=== PATIENT | male | born 1975 | race Caucasian/White ===

== ENCOUNTER 2016-05-08 19:09 | Emergency (ER) | payer MEDICAID ==
[2016-05-08] MEDS ORDERED: Sodium Chloride 0.9% 10 ML Syringe FLUSH PRN (19:12)
[2016-05-08] MEDS ORDERED: LORazepam 2 MG/ML MDV IM ONE (19:13)
[2016-05-08] MEDS ORDERED: Haloperidol Lactate 5 MG/ML SDV IM ONE ×2 (19:14)
[2016-05-08] MEDS ORDERED: Sodium Chloride 0.9% 1,000 ML IV SCH (19:15)
[2016-05-08] MEDS ORDERED: Sodium Chloride 0.9% 1,000 ML IV ONE (20:17)
[2016-05-08] MEDS ORDERED: Potassium Chloride 20 MEQ Tab.ER PO ONE (20:17)
--- NOTE | 2016-05-08 20:32 | EDM.PDOC ---
ED HPI Behavioral Health - General Chief Complaint: Drug or Alcohol Abuse Stated Complaint: EFRAIN THACKER Time Seen by Provider: 05/08/16 19:11 Source of Information: Reports: Patient, Police Exam Limitations: Reports: Intoxication - History of Present Illness INITIAL COMMENTS - FREE TEXT/NARRATIVE: The patient was brought in by the police department because they found him wandering the streets naked and high on something. When he arrived he was anxious and agitated and he would not answer my questions. He was saying sorry to Julien and saying he feet are burning. He was found with no shoes or socks and it is about 19 degrees outside. He could not answer any of my questions and the police had no other information. Onset of Symptoms: Reports: gradual Duration of Symptoms: Reports: Day(s): Severity: severe Context, Behavioral Health: Reports: other Associated Symptoms: Reports: anxiety, agitation - Related Data Allergies Allergy/AdvReac Type Severity Reaction Status Date / Time No Known Allergies Allergy Verified 05/08/16 19:18 Home Medications: Home Meds QUEtiapine Fumarate [Seroquel Xr] 300 mg PO BEDTIME #30 tab.sr.24h 05/09/16 [Rx] Past Medical History - Past Surgical History Musculoskeletal Surgical History: Reports: ORIF Social & Family History - Tobacco Use Smoking Status *Q: Never Smoker - Recreational Drug Use Recreational Drug Use: Yes Drug Use in Last 12 Months: Yes Recreational Drug Type: Reports: Methamphetamine Recreational Drug Use Frequency: Binges ED ROS GENERAL - Review of Systems Review Of Systems: Unable To Obtain ED EXAM, BEHAVIORAL HEALTH - Physical Exam Exam: See Below Exam Limited By: Altered mental status (Agitated and confused) General Appearance: alert, anxious, moderate distress Nose: normal inspection Head: atraumatic, normocephalic Neck: normal inspection Respiratory/Chest: no respiratory distress, lungs clear, normal breath sounds Cardiovascular: regular rate, rhythm, no edema, no murmur GI/Abdominal: soft, non tender, no organomegaly Back Exam: normal inspection Extremities: normal inspection Neurological: alert, no motor/sensory deficits, oriented x 3 Psychiatric: alert, other (Confused and he will not answer my questions) Skin Exam: Warm, Dry EKG INTERPRETATION EKG Date: 05/08/16 Time: 19:24 Rhythm: other (Sinus tachycardia) Rate (beats/min): 138 [place]: normal P-wave: present QRS: normal ST-T: normal QT: normal COURSE, BEHAVIORAL HEALTH COMP - Course Vital Signs: Last Vital Signs Temp 98.4 F 05/08/16 19:16 Pulse 120 H 05/08/16 19:16 Resp 20 05/08/16 19:16 BP 109/63 05/08/16 19:16 Pulse Ox 95 05/08/16 19:16 Orders, Labs, Meds: Active Orders 24 hr Category Date Time Status Cardiac Monitoring [RC] . DIRECTED Care 05/08/16 19:12 Active EKG Documentation Completion [RC] STAT Care 05/08/16 19:13 Active Peripheral IV Care [RC] . DIRECTED Care 05/08/16 19:13 Active NS + KCl 20mEq/L [Normal Saline with 20 mEq KCl] 1,000 Med 05/08/16 23:15 Active ml IV ASDIRECTED Sodium Chloride 0.9% [Normal Saline] 1,000 ml Med 05/08/16 19:15 Active IV .BOLUS Sodium Chloride 0.9% [Saline Flush] Med 05/08/16 19:12 Active 10 ml FLUSH ASDIRECTED PRN Peripheral IV Insertion Adult [OM.PC] Stat Oth 05/08/16 19:12 Ordered Medication Orders Sodium Chloride (Normal Saline) 1,000 mls @ 1,000 mls/hr IV .BOLUS LYN Last Admin: 05/08/16 19:41 Dose: 1,000 mls/hr Potassium Chloride/Sodium Chloride (Normal Saline With 20 Meq Kcl) 1,000 mls @ 150 mls/hr IV ASDIRECTED LYN Sodium Chloride (Saline Flush) 10 ml FLUSH ASDIRECTED PRN PRN Reason: Keep Vein Open Last Admin: 05/08/16 19:41 Dose: 10 ml Laboratory Tests 05/08/16 05/08/16 05/08/16 Range/Units 19:25 19:25 19:25 WBC 16.04 H (4.23-9.07) K/mm3 RBC 5.39 (4.63-6.08) M/mm3 Hgb 16.7 (13.7-17.5) gm/L Hct 46.8 (40.1-51.0) % MCV 86.8 (79.0-92.2) fl MCH 31.0 (25.7-32.2) pg MCHC 35.7 H (32.2-35.5) g/dl RDW Std Deviation 38.5 (35.1-43.9) fL Plt Count 266 (163-337) K/mm3 MPV 9.5 (9.4-12.3) fl Neut % (Auto) 68.9 H (34.0-67.9) % Lymph % (Auto) 20.9 L (21.8-53.1) % [place] % (Auto) 7.1 (5.3-12.2) % Eos % (Auto) 1.2 (0.8-7.0) Baso % (Auto) 0.7 (0.1-1.2) % Neut # 11.05 H (1.78-5.38) K/mm3 Lymph # 3.35 (1.32-3.57) K/mm3 [place] # 1.14 H (0.30-0.82) K/mm3 Eos # 0.19 (0.04-0.54) K/mm3 Baso # 0.11 H (0.01-0.08) K/mm3 Manual Slide Review Normal smear Sodium 137 (136-145) mEq/L Potassium 2.5 L (3.5-5.1) mEq/L Chloride 94 L (98-107) mEq/L Carbon Dioxide 12 L (21-32) mEq/L Anion Gap 33.5 H (5-15) BUN 25 H (7-18) mg/dL Creatinine 2.4 H (0.7-1.3) mg/dL Est Cr Clr Drug Dosing 39.98 mL/min Estimated GFR (MDRD) 30 (>60) mL/min BUN/Creatinine Ratio 10.4 L (14-18) Glucose 264 H (74-106) mg/dL Calcium 9.2 (8.5-10.1) mg/dL Total Bilirubin 1.8 H (0.2-1.0) mg/dL AST 67 H (15-37) U/L ALT 82 H (16-63) U/L Alkaline Phosphatase 70 (46-116) U/L Total Protein 8.7 H (6.4-8.2) g/dl Albumin 4.3 (3.4-5.0) g/dl Globulin 4.4 gm/dL Albumin/Globulin Ratio 1.0 (1-2) TSH 3rd Generation 3.898 H (0.358-3.74) uIU/mL Salicylates < 0.2 L (2.8-20) mg/dL Urine Opiates Screen (NEGATIVE) Ur Buprenorphine Scrn (NEGATIVE) Ur Oxycodone Screen (NEGATIVE) Urine Methadone Screen (NEGATIVE) Ur Propoxyphene Screen (NEGATIVE) Acetaminophen 0 L (10-30) ug/mL Ur Barbiturates Screen (NEGATIVE) Ur Tricyclics Screen (NEGATIVE) Ur Phencyclidine Scrn (NEGATIVE) Ur Amphetamine Screen (NEGATIVE) U Methamphetamines Scrn (NEGATIVE) U Benzodiazepines Scrn (NEGATIVE) U Cocaine Metab Screen (NEGATIVE) U Marijuana (THC) Screen (NEGATIVE) Ethyl Alcohol 0.00 (0.00) gm% 05/08/16 05/09/16 Range/Units 19:35 06:30 WBC (4.23-9.07) K/mm3 RBC (4.63-6.08) M/mm3 Hgb (13.7-17.5) gm/L Hct (40.1-51.0) % MCV (79.0-92.2) fl MCH (25.7-32.2) pg MCHC (32.2-35.5) g/dl RDW Std Deviation (35.1-43.9) fL Plt Count (163-337) K/mm3 MPV (9.4-12.3) fl Neut % (Auto) (34.0-67.9) % Lymph % (Auto) (21.8-53.1) % [place] % (Auto) (5.3-12.2) % Eos % (Auto) (0.8-7.0) Baso % (Auto) (0.1-1.2) % Neut # (1.78-5.38) K/mm3 Lymph # (1.32-3.57) K/mm3 [place] # (0.30-0.82) K/mm3 Eos # (0.04-0.54) K/mm3 Baso # (0.01-0.08) K/mm3 Manual Slide Review Sodium 137 (136-145) mEq/L Potassium 3.6 (3.5-5.1) mEq/L Chloride 100 (98-107) mEq/L Carbon Dioxide 24 (21-32) mEq/L Anion Gap 16.6 H (5-15) BUN 20 H (7-18) mg/dL Creatinine 1.1 (0.7-1.3) mg/dL Est Cr Clr Drug Dosing 87.23 mL/min Estimated GFR (MDRD) > 60 (>60) mL/min BUN/Creatinine Ratio 18.2 H (14-18) Glucose 86 (74-106) mg/dL Calcium 8.1 L (8.5-10.1) mg/dL Total Bilirubin 1.5 H (0.2-1.0) mg/dL AST 65 H (15-37) U/L ALT 67 H (16-63) U/L Alkaline Phosphatase 59 (46-116) U/L Total Protein 7.2 (6.4-8.2) g/dl Albumin 3.3 L (3.4-5.0) g/dl Globulin 3.9 gm/dL Albumin/Globulin Ratio 0.9 L (1-2) TSH 3rd Generation (0.358-3.74) uIU/mL Salicylates (2.8-20) mg/dL Urine Opiates Screen Negative (NEGATIVE) Ur Buprenorphine Scrn Negative (NEGATIVE) Ur Oxycodone Screen Negative (NEGATIVE) Urine Methadone Screen Negative (NEGATIVE) Ur Propoxyphene Screen Negative (NEGATIVE) Acetaminophen (10-30) ug/mL Ur Barbiturates Screen Negative (NEGATIVE) Ur Tricyclics Screen Negative (NEGATIVE) Ur Phencyclidine Scrn Negative (NEGATIVE) Ur Amphetamine Screen Presumptive positive H (NEGATIVE) U Methamphetamines Scrn Presumptive positive H (NEGATIVE) U Benzodiazepines Scrn Negative (NEGATIVE) U Cocaine Metab Screen Negative (NEGATIVE) U Marijuana (THC) Screen Negative (NEGATIVE) Ethyl Alcohol (0.00) gm% Medications Generic Name Dose Route Start Last Admin Trade Name Freq PRN Reason Stop Dose Admin Sodium Chloride 1,000 mls @ 1,000 mls/hr 05/08/16 19:15 05/08/16 19:41 Normal Saline IV 1,000 mls/hr .BOLUS LYN Administration Potassium Chloride/Sodium Chloride 1,000 mls @ 150 mls/hr 05/08/16 23:15 Normal Saline With 20 Meq Kcl IV ASDIRECTED LYN Sodium Chloride 10 ml 05/08/16 19:12 05/08/16 19:41 Saline Flush FLUSH 10 ml ASDIRECTED PRN Administration Keep Vein Open Discontinued Medications Generic Name Dose Route Start Last Admin Trade Name Justin PRN Reason Stop Dose Admin Haloperidol Lactate 5 mg 05/08/16 19:14 05/08/16 19:09 Haldol IM 05/08/16 19:15 5 mg ONETIME ONE Administration Haloperidol Lactate 5 mg 05/08/16 19:14 05/08/16 19:10 Haldol IM 05/08/16 19:15 5 mg ONETIME ONE Administration Sodium Chloride 1,000 mls @ 1,000 mls/hr 05/08/16 20:17 05/08/16 20:54 Normal Saline IV 05/08/16 21:16 1,000 mls/hr ONETIME ONE Administration Lorazepam 2 mg 05/08/16 19:13 05/08/16 19:09 Ativan IM 05/08/16 19:14 2 mg ONETIME ONE Administration Potassium Chloride 40 meq 05/08/16 20:17 05/08/16 20:26 Klor-Con M20 PO 05/08/16 20:18 40 meq ONETIME ONE Administration Re-Assessment/Re-Exam: I ordered ativan 2mg IM and haldol 5mg IM. That did not help much so I ordered haldol 5mg IM. He was more cooperative then and my nurse could put an IV in and give him NS 1L bolus. His EKG shows a sinus tachycardia without acute changes. His WBC is elevated at 16.04. His K was low at 2.5. He is drinking now so I ordered 40meq of KCL orally. His glucose was elevated at 254. His total bili was elevated at 1.8. His AST was elevated at 67. His ALT was elevated at 82. His TSH was elevated at 3.898. His salicylates and acetaminophen were both negative. He was positive for meth and amphetamines. He admitted to using meth over the past few days. His ETOH is negative. I gave him another liter of fluid. He is dehydrated. I went in to talk to him again and he was doing much better. We had a good conversation to start with. He knows he needs to get off the meth and he will never do it again. He then says that some one is testing him and they have put nanobots under his skin. One of them makes a hissing sound in his ears. They were also zapping his feet and that is why they hurt. He knows who he is, where he is and when it is but he is having delusions and hallucinations. I will need to get him on some seroquel and I will recheck his CMP now. He has been getting IV fluids and he has been drinking water through the night. His CMP looks much better. His K is normal and his creatinine is normal at 1.1. His liver enzymes are still elevated. I will discharge him home on some seroquel and follow up with Dr Diaz. Departure - Departure Time of Disposition: 07:05 Disposition: Home, Self-Care 01 Condition: good Clinical Impression: Drug abuse, Methamphetamine abuse Prescriptions: QUEtiapine Fumarate [Seroquel Xr] 300 mg PO BEDTIME #30 tab.sr.24h Referrals: Dewey Diaz MD [Physician] - 1 Week Additional Instructions: Take the seroquel at bedtime. Follow up with Dr Diaz. Please return if you are worse. - My Orders Last 24 Hours: My Active Orders 05/08/16 19:12 Cardiac Monitoring [RC] . DIRECTED Sodium Chloride 0.9% [Saline Flush] 10 ml FLUSH ASDIRECTED PRN Peripheral IV Insertion Adult [OM.PC] Stat 05/08/16 19:13 EKG Documentation Completion [RC] STAT Peripheral IV Care [RC] . DIRECTED 05/08/16 19:15 Sodium Chloride 0.9% [Normal Saline] 1,000 ml IV .BOLUS 05/08/16 23:15 NS + KCl 20mEq/L [Normal Saline with 20 mEq KCl] 1,000 ml IV ASDIRECTED - Assessment/Plan Last 24 Hours: My Active Orders 05/08/16 19:12 Cardiac Monitoring [RC] . DIRECTED Sodium Chloride 0.9% [Saline Flush] 10 ml FLUSH ASDIRECTED PRN Peripheral IV Insertion Adult [OM.PC] Stat 05/08/16 19:13 EKG Documentation Completion [RC] STAT Peripheral IV Care [RC] . DIRECTED 05/08/16 19:15 Sodium Chloride 0.9% [Normal Saline] 1,000 ml IV .BOLUS 05/08/16 23:15 NS + KCl 20mEq/L [Normal Saline with 20 mEq KCl] 1,000 ml IV ASDIRECTED
[2016-05-08] MEDS ORDERED: NS + KCl 20mEq/L 1,000 ML IV SCH (23:15)
[2016-05-09 06:33] VITALS: BP 109/63
== END 2016-05-09 07:45 | disposition home or self-care (01) ==
LOC: JD.ED 19:09
DX: F15.10 Other stimulant abuse, uncomplicated (principal); Z98.890 Other specified postprocedural states
CPT/HCPCS: 36415; 80053; 84443; 85025; 93005; 96360; 96361; 96372; 99284; A9270; G0478; G0479; G0480; J1630; J2060; J7040; J7050; P9612; 80306; 99285

== ENCOUNTER 2016-05-20 06:44 | Inpatient (IN) | payer MEDICAID ==
[2016-05-20] MEDS ORDERED: Lactated Ringers 1,000 ML IV ONE (07:01)
[2016-05-20] MEDS: Sodium Chloride 0.9% 10 ML Syringe FLUSH PRN (07:34)
--- NOTE | 2016-05-20 07:45 | EDM.PDOC ---
ED HPI GENERAL MEDICAL PROBLEM - General Chief Complaint: Exposure to Heat or Cold Stated Complaint: FROSTBITE Time Seen by Provider: 05/20/16 06:57 Source of Information: Reports: Patient History Limitations: Reports: Intoxication - History of Present Illness INITIAL COMMENTS - FREE TEXT/NARRATIVE: The patient [place] by [place] taxi cab [place] right here. The patient was very cold and agitated. He was a little confused. He was worried about the police. He was here about 2 weeks ago with meth intoxication. That time the police found him wondering naked in the streets with just his wallet. He used meth at that time. This time he denied meth use to me but later he did admit to my nurse that he did use meth. He denies any pain anywhere. Onset: gradual Duration: Day(s): Severity: moderate Improves with: Reports: None Worsens with: Reports: None Associated Symptoms: Denies: chest pain, cough, fever/chills, headaches, loss of appetite, nausea/vomiting, shortness of breath - Related Data Allergies Allergy/AdvReac Type Severity Reaction Status Date / Time No Known Allergies Allergy Verified 05/08/16 19:18 Home Meds: Home Meds QUEtiapine Fumarate [Seroquel Xr] 300 mg PO BEDTIME #30 tab.sr.24h 05/09/16 [Rx] Past Medical History - Past Surgical History Musculoskeletal Surgical History: Reports: ORIF Social & Family History - Tobacco Use Smoking Status *Q: Never Smoker - Recreational Drug Use Recreational Drug Use: Yes Drug Use in Last 12 Months: Yes Recreational Drug Type: Reports: Methamphetamine Recreational Drug Use Frequency: Binges ED ROS GENERAL - Review of Systems Review Of Systems: See Below Constitutional: Reports: no symptoms HEENT: Reports: No symptoms Respiratory: Reports: no symptoms Cardiovascular: Reports: No symptoms Endocrine: Reports: no symptoms GI/Abdominal: Reports: No symptoms : Reports: no symptoms Musculoskeletal: Reports: no symptoms Skin: Reports: no symptoms Neurological: Reports: no symptoms Psychiatric: Reports: No symptoms Hematologic/Lymphatic: Reports: no symptoms ED EXAM, GENERAL - Physical Exam Exam: See Below Exam Limited By: No limitations General Appearance: alert, no apparent distress Ears: normal external exam Nose: normal inspection Head: atraumatic, normocephalic Neck: normal inspection Respiratory/Chest: no respiratory distress, lungs clear, normal breath sounds Cardiovascular: regular rate, rhythm, no edema, no murmur GI/Abdominal: soft, non tender, no organomegaly Back Exam: normal inspection Extremities: normal inspection Neurological: alert, oriented, no motor/sensory deficits Course - Vital Signs Last Recorded V/S: Last Vital Signs Temp 96.8 F 05/20/16 07:04 Pulse 106 H 05/20/16 07:04 Resp 20 05/20/16 07:04 BP 137/87 05/20/16 07:04 Pulse Ox 96 05/20/16 07:04 - Orders/Labs/Meds Orders: Active Orders 24 hr Category Date Time Status Cardiac Monitoring [RC] . DIRECTED Care 05/20/16 06:59 Active Peripheral IV Care [RC] . DIRECTED Care 05/20/16 07:00 Active DRUG SCREEN, URINE [URCHEM] Stat Lab 05/20/16 06:58 Uncollected Sodium Chloride 0.9% [Saline Flush] Med 05/20/16 06:58 Active 10 ml FLUSH ASDIRECTED PRN Peripheral IV Insertion Adult [OM.PC] Stat Oth 05/20/16 06:58 Ordered Medication Orders Sodium Chloride (Saline Flush) 10 ml FLUSH ASDIRECTED PRN PRN Reason: Keep Vein Open Last Admin: 05/20/16 07:34 Dose: 10 ml Labs: Laboratory Tests 05/20/16 05/20/16 Range/Units 07:20 07:20 WBC 11.54 H (4.23-9.07) K/mm3 RBC 4.94 (4.63-6.08) M/mm3 Hgb 15.4 (13.7-17.5) gm/L Hct 44.5 (40.1-51.0) % MCV 90.1 (79.0-92.2) fl MCH 31.2 (25.7-32.2) pg MCHC 34.6 (32.2-35.5) g/dl RDW Std Deviation 41.2 (35.1-43.9) fL Plt Count 229 (163-337) K/mm3 MPV 8.6 L (9.4-12.3) fl Neut % (Auto) 81.6 H (34.0-67.9) % Lymph % (Auto) 14.0 L (21.8-53.1) % [place] % (Auto) 3.0 L (5.3-12.2) % Eos % (Auto) 0.4 L (0.8-7.0) Baso % (Auto) 0.6 (0.1-1.2) % Neut # 9.40 H (1.78-5.38) K/mm3 Lymph # 1.62 (1.32-3.57) K/mm3 [place] # 0.35 (0.30-0.82) K/mm3 Eos # 0.05 (0.04-0.54) K/mm3 Baso # 0.07 (0.01-0.08) K/mm3 Sodium 148 H (136-145) mEq/L Potassium 3.6 (3.5-5.1) mEq/L Chloride 108 H (98-107) mEq/L Carbon Dioxide 22 (21-32) mEq/L Anion Gap 21.6 H (5-15) BUN 19 H (7-18) mg/dL Creatinine 1.0 (0.7-1.3) mg/dL Est Cr Clr Drug Dosing TNP Estimated GFR (MDRD) > 60 (>60) mL/min BUN/Creatinine Ratio 19.0 H (14-18) Glucose 127 H (74-106) mg/dL Calcium 7.7 L (8.5-10.1) mg/dL Total Bilirubin 0.2 (0.2-1.0) mg/dL AST 168 H (15-37) U/L ALT 126 H (16-63) U/L Alkaline Phosphatase 59 (46-116) U/L Total Protein 7.6 (6.4-8.2) g/dl Albumin 3.8 (3.4-5.0) g/dl Globulin 3.8 gm/dL Albumin/Globulin Ratio 1.0 (1-2) TSH 3rd Generation 0.816 (0.358-3.74) uIU/mL Ethyl Alcohol 0.41 (0.00) gm% Meds: Medications Generic Name Dose Route Start Last Admin Trade Name Freq PRN Reason Stop Dose Admin Sodium Chloride 10 ml 05/20/16 06:58 05/20/16 07:34 Saline Flush FLUSH 10 ml ASDIRECTED PRN Administration Keep Vein Open Discontinued Medications Generic Name Dose Route Start Last Admin Trade Name Justin PRN Reason Stop Dose Admin Lactated Ringer's 1,000 mls @ 1,000 mls/hr 05/20/16 07:01 05/20/16 07:04 Ringers, Lactated IV 05/20/16 08:00 1,000 mls/hr .BOLUS ONE Administration - Re-Assessments/Exams Free Text/Narrative Re-Assessment/Exam: 05/20/16 07:44 I ordered an IV LR warmed bolus. I will get labs and a urine drug screen. 05/20/16 12:22 His WBC was a little elevated at 11.54. His Na was a little high at 148. His glucose is elevated at 127. His AST and ALT are both elevated. His TSH was normal. His blood alcohol was 0.41. He could not give us a urine sample but he did admit to doing meth. He slept for over 4 hours and Janiya our social service liaison came to talk to him. He had court today and he was stressed out about that and he drank 2 bottles of cheep alcohol. He does want to get some help and she got him set up with [facility] on Tuesday. She talked with his sister and they will come get him later. Departure - Departure Time of Disposition: 12:30 Disposition: Home, Self-Care 01 Condition: good Clinical Impression: Alcohol intoxication Qualifiers: Complication of substance-induced condition: uncomplicated Qualified Code(s): F10.120 - Alcohol abuse with intoxication, uncomplicated Forms: ED Department Discharge Additional Instructions: Follow up with [facility] on Tuesday. Their telephone number is [phone]. Please return if you are worse. - My Orders Last 24 Hours: My Active Orders 05/20/16 06:58 DRUG SCREEN, URINE [URCHEM] Stat Sodium Chloride 0.9% [Saline Flush] 10 ml FLUSH ASDIRECTED PRN Peripheral IV Insertion Adult [OM.PC] Stat 05/20/16 06:59 Cardiac Monitoring [RC] . DIRECTED 05/20/16 07:00 Peripheral IV Care [RC] . DIRECTED - Assessment/Plan Last 24 Hours: My Active Orders 05/20/16 06:58 DRUG SCREEN, URINE [URCHEM] Stat Sodium Chloride 0.9% [Saline Flush] 10 ml FLUSH ASDIRECTED PRN Peripheral IV Insertion Adult [OM.PC] Stat 05/20/16 06:59 Cardiac Monitoring [RC] . DIRECTED 05/20/16 07:00 Peripheral IV Care [RC] . DIRECTED
--- NOTE | 2016-05-20 13:30 | PCM.HP ---
H&P History of Present Illness - General Date of Service: 05/20/16 Admit Problem/Dx: ETOH Intoxication with Withdrawal Source of Information: Patient, Family, Old records, Provider, RN notes reviewed History Limitations: Reports: Altered mental status, Intoxication - History of Present Illness Initial Comments - Free Text/Narative: This is a 41 yo white male with past medical hx/o Chronic ETOH Abuse and Substance Abuse who was brought in by local taxi cab this morning very cold and agitated. [place]. Patient was initially seen here in ED about 2 weeks ago for meth intoxication. He was found by local police wondering naked out in the street anxious and agitated. Per secondary sources, he supposed to show up to court today but was so stressed out about it so started drinking heavily overnight with hard liquor. He is worried about the police. His initial work up in ED shows a CBC remarkable for WBC 11.54 and Neutrophils 81.6%. His chemistry is remarkable for na 148, Cl 108, AG 21.6, BUN 19 BS 127, Ca 7.7, AST 168, and ALT 126. UA is still pending and his RONNIE is 0.41. Patient received initial treatment in ED before he was discharged. On his way out the door, he got more symptomatic started "seeing things" (snakes). Therefore he was referred to me for ETOH Detoxification. - Related Data Allergies/Adverse Reactions: Allergies Allergy/AdvReac Type Severity Reaction Status Date / Time No Known Allergies Allergy Verified 05/08/16 19:18 Home Medications: Home Meds QUEtiapine Fumarate [Seroquel Xr] 300 mg PO BEDTIME #30 tab.sr.24h 05/09/16 [Rx] Past Medical History Gastrointestinal History: Reports: Other (see below) Other Gastrointestinal History: states has had "bad nausea" last 3 or 4 days, has been taking Peptobismal and Zantac. - Past Surgical History Musculoskeletal Surgical History: Reports: ORIF Social & Family History - Tobacco Use Smoking Status *Q: Never Smoker Second Hand Smoke Exposure: No - Caffeine Use Caffeine Use: Reports: Coffee - Alcohol Use Days Per Week of Alcohol Use: 2 Number of Drinks Per Day: 4 Total Drinks Per Week: 8 - Recreational Drug Use Recreational Drug Use: Yes Drug Use in Last 12 Months: Yes Recreational Drug Type: Reports: Methamphetamine Recreational Drug Use Frequency: Binges H&P Review of Systems - Review of Systems: Review Of Systems: See Below General: Denies: fever, chills HEENT: Reports: no symptoms Pulmonary: Denies: shortness of breath Cardiovascular: Denies: chest pain, dyspnea on exertion, syncope Gastrointestinal: Denies: Abdominal pain, Nausea, Vomiting Genitourinary: Reports: no symptoms Musculoskeletal: Reports: no symptoms Skin: Denies: cyanosis, jaundice Psychiatric: Reports: anxiety, hallucinations, hallucinations (visual) (seing snakes), other (patient in tears). Denies: suicidal ideation Neurological: Reports: tremors, difficulty walking, gait disturbance, other ( crawling sensation underneath the skin). Denies: confusion, dizziness Hematologic/Lymphatic: Reports: no symptoms Immunologic: Reports: no symptoms Exam - Exam Exam: See Below - Vital Signs Vital Signs: Last Vital Signs Temp 36.0 C 05/20/16 07:04 Pulse 106 H 05/20/16 07:04 Resp 20 05/20/16 07:04 BP 137/87 05/20/16 07:04 Pulse Ox 96 05/20/16 07:04 Weight: 81.647 kg - Exam General: mild distress HEENT: Conjunctiva clear, EACs clear, Hearing intact, Mucosa moist & pink, Normal nasal septum, Posterior pharynx clear, Pupils equal, Pupils reactive, Other (nystagmus). No: EOMI Neck: supple, trachea midline, 2+ carotid pulse wo bruit, full range of motion Lungs: Normal respiratory effort, Decreased breath sounds Cardiovascular: regular rhythm, tachycardia Abdomen: normal bowel sounds, soft. No: organomegaly (Male) Exam: Deferred Rectal (Males) Exam: Deferred Back Exam: normal inspection, decreased range of motion Extremities: normal inspection, normal pulses, other (right knee-zhong surgery). No: clubbing, cyanosis, calf tenderness, edema, increased warmth Peripheral Pulses: 3+: posterior tibial (L), posterior tibial (R), dorsalis pedis (L), dorsalis pedis (R) Skin: warm, dry, intact Neuro Extensive - Mental Status: slow response to commands. No: normal cognition Neuro Extensive - Motor, Sensory, Reflexes: CN II-XII intact (limited due to intoxication and withdrawal symptoms). No: normal gait Psychiatric: alert, withdrawal symptoms - Patient Data Lab Results last 24 hrs: Laboratory Results - last 24 hr 05/20/16 05/20/16 Range/Units 07:20 07:20 WBC 11.54 H (4.23-9.07) K/mm3 RBC 4.94 (4.63-6.08) M/mm3 Hgb 15.4 (13.7-17.5) gm/L Hct 44.5 (40.1-51.0) % MCV 90.1 (79.0-92.2) fl MCH 31.2 (25.7-32.2) pg MCHC 34.6 (32.2-35.5) g/dl RDW Std Deviation 41.2 (35.1-43.9) fL Plt Count 229 (163-337) K/mm3 MPV 8.6 L (9.4-12.3) fl Neut % (Auto) 81.6 H (34.0-67.9) % Lymph % (Auto) 14.0 L (21.8-53.1) % [place] % (Auto) 3.0 L (5.3-12.2) % Eos % (Auto) 0.4 L (0.8-7.0) Baso % (Auto) 0.6 (0.1-1.2) % Neut # 9.40 H (1.78-5.38) K/mm3 Lymph # 1.62 (1.32-3.57) K/mm3 [place] # 0.35 (0.30-0.82) K/mm3 Eos # 0.05 (0.04-0.54) K/mm3 Baso # 0.07 (0.01-0.08) K/mm3 Sodium 148 H (136-145) mEq/L Potassium 3.6 (3.5-5.1) mEq/L Chloride 108 H (98-107) mEq/L Carbon Dioxide 22 (21-32) mEq/L Anion Gap 21.6 H (5-15) BUN 19 H (7-18) mg/dL Creatinine 1.0 (0.7-1.3) mg/dL Est Cr Clr Drug Dosing TNP Estimated GFR (MDRD) > 60 (>60) mL/min BUN/Creatinine Ratio 19.0 H (14-18) Glucose 127 H (74-106) mg/dL Calcium 7.7 L (8.5-10.1) mg/dL Total Bilirubin 0.2 (0.2-1.0) mg/dL AST 168 H (15-37) U/L ALT 126 H (16-63) U/L Alkaline Phosphatase 59 (46-116) U/L Total Protein 7.6 (6.4-8.2) g/dl Albumin 3.8 (3.4-5.0) g/dl Globulin 3.8 gm/dL Albumin/Globulin Ratio 1.0 (1-2) TSH 3rd Generation 0.816 (0.358-3.74) uIU/mL Ethyl Alcohol 0.41 (0.00) gm% Result Diagrams: 05/20/16 07:20 05/20/16 07:20 *Q Meaningful Use (ADM) - VTE *Q VTE Criteria *Q: - Stroke *Q Stroke Criteria *Q: - AMI *Q AMI Criteria *Q: Problem List Initiated/Reviewed/Updated: Yes Orders Last 24hrs: Active Orders 24 hr Category Date Time Status Cardiac Monitoring [RC] . DIRECTED Care 05/20/16 06:59 Active Peripheral IV Care [RC] . DIRECTED Care 05/20/16 07:00 Active DRUG SCREEN, URINE [URCHEM] Stat Lab 05/20/16 12:48 Received Sodium Chloride 0.9% [Saline Flush] Med 05/20/16 06:58 Active 10 ml FLUSH ASDIRECTED PRN Peripheral IV Insertion Adult [OM.PC] Stat Oth 05/20/16 06:58 Ordered Medication Orders Sodium Chloride (Saline Flush) 10 ml FLUSH ASDIRECTED PRN PRN Reason: Keep Vein Open Last Admin: 05/20/16 07:34 Dose: 10 ml Assessment/Plan Comment:: Assessment: ETOH Intoxication with Withdrawal Symptoms - RONNIE 0.41 - CIWA protocol: CIWA score is markedly elevated - He is on his way out the door when he got symptomatic and started having visual hallucinations - Ativan/Librium/Topamax - Hydralzine and IVP BB for HR/BP control - Ativan for Abortive Seizure and Withdrawal Symptoms - Restoril for Insomnia - Patient in tears and wants to get better - He is not opposed to going for chemical dependency rehab Hx/o Meth Abuse - He admits to meth use via ingestion but not IVDU (although he has needle track thompson on ante-cubital: 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, 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) - UDS: pending - Counseled on Substance Abuse - SA/Psych consult Chronic ETOH Abuse - CIWA protocol - He drinks heavily about 320 ml x 4-5 daily, he has an empty bottle of hard liquor outside his room - He supposed to shows up to court today but started drinking alcohol last night Transaminitis - 2/2 ETOH Abuse - Will monitor Plan: Admit to ICU Hemodynamic monitoring MVI, Folic, Acid and Thiamine CIWA protocol Ativan for Abortive Seizure and Withdrawal Symptoms Restoril for Insomnia PRN meds for Withdrawal Symptoms Resume Home Medications Aspiration/Seizure Precautions SW/CM d/c planning SA/Psych consult Code Status: 1
[2016-05-20] MEDS ORDERED: Acetaminophen 325 MG Tab PO PRN (13:32)
[2016-05-20] MEDS ORDERED: Polyethylene Glycol 3350 Powder 17 GM Packet PO PRN (13:32)
[2016-05-20] MEDS ORDERED: Temazepam 15 MG Cap PO PRN (13:32)
[2016-05-20] MEDS ORDERED: Ondansetron 4 MG/2 ML SDV IV PRN (13:32)
[2016-05-20] MEDS ORDERED: Albuterol/Ipratropium 3.0-0.5 MG/3 ML Neb Soln NEB PRN (13:32)
[2016-05-20] MEDS ORDERED: Promethazine 12.5 MG in Sodium Chloride 0.9% 50 ML IV PRN (13:32)
[2016-05-20] MEDS ORDERED: Bisacodyl 5 MG Tab PO PRN (13:32)
[2016-05-20] MEDS ORDERED: Thiamine 200 MG in Sodium Chloride 0.9% 100 ML IV ONE (13:38)
[2016-05-20] MEDS ORDERED: Metoprolol Tartrate 5 MG/5 ML SDV IVPUSH PRN (13:39)
[2016-05-20] MEDS ORDERED: hydrALAZINE 20 MG/ML SDV IVPUSH PRN (13:40)
[2016-05-20] MEDS ORDERED: Topiramate 25 MG Tab PO ONE (14:30)
[2016-05-20] MEDS: LORazepam 2 MG/ML MDV IVPUSH PRN (16:30)
[2016-05-20] MEDS: chlordiazePOXIDE 25 MG Cap PO SCH ×3 (16:30→20:07)
[2016-05-20] MEDS ORDERED: Diphtheria,Pertussis(Acell),Tetanus Vaccine 0.5 ML SDV inactive IM ONE (16:40)
[2016-05-20] MEDS ORDERED: Pneumococcal Polyvalent-23 Vaccine 0.5 ML SDV IM ONE (16:40)
[2016-05-20] MEDS: Multivitamins,Therapeutic Tab PO SCH (20:06)
[2016-05-20] MEDS: Pantoprazole 40 MG Vial IV SCH (20:07)
[2016-05-20] MEDS: Dextrose 5%-0.45% NaCl 1,000 ML IV SCH (20:07)
[2016-05-20] MEDS: QUEtiapine 100 MG Tab PO SCH (20:07)
[2016-05-20] MEDS: Folic Acid 1 MG Tab PO SCH (20:07)
[2016-05-20] MEDS: Topiramate 25 MG Tab PO SCH (20:07)
[2016-05-21] MEDS: Dextrose 5%-0.45% NaCl 1,000 ML IV SCH (04:10)
[2016-05-21] MEDS: LORazepam 2 MG/ML MDV IVPUSH PRN (07:42)
[2016-05-21] MEDS: chlordiazePOXIDE 25 MG Cap PO SCH ×4 (08:59→21:16)
[2016-05-21] MEDS: Pantoprazole 40 MG Vial IV SCH (08:59)
[2016-05-21] MEDS: Topiramate 25 MG Tab PO SCH ×2 (08:59→21:15)
[2016-05-21] MEDS: Enoxaparin 40 MG/0.4 ML Syringe SUBCUT SCH (09:00)
--- NOTE | 2016-05-21 09:36 | PCM.PN ---
- General Info Date of Service: 05/21/16 Admission Dx/Problem (Free Text): ETOH Intoxication with Withdrawal Subjective Update: Follow Up Functional Status: Reports: pain controlled, tolerating diet, ambulating, urinating. Denies: new symptoms - Review of Systems General: Denies: fever, chills HEENT: Reports: no symptoms Pulmonary: Denies: shortness of breath Cardiovascular: Denies: chest pain Gastrointestinal: Denies: Abdominal pain, Nausea, Vomiting Genitourinary: Reports: no symptoms Musculoskeletal: Reports: no symptoms Skin: Reports: other (blisters on 5th digit (left hand) ) Neurological: Denies: confusion, seizure, difficulty walking, weakness, gait disturbance Psychiatric: Denies: depression, anxiety, hallucinations, suicidal ideation Systems Review Comment:: No overnight or acute issues. He slept well. His CIWA is now bet 5-6. He has no new complaints. - Patient Data Vitals - most recent: Last Vital Signs Temp 37.0 C 05/21/16 08:00 Pulse 89 05/21/16 04:00 Resp 15 05/21/16 08:00 BP 134/88 05/21/16 08:00 Pulse Ox 97 05/21/16 08:00 Weight - most recent: 77.065 kg I&O - last 24 hours: Intake & Output 05/20/16 05/21/16 05/21/16 22:59 06:59 14:59 Intake Total 1400 620 Output Total 1675 Balance 1400 620 -1675 Lab Results last 24 hrs: Laboratory Results - last 24 hr 05/21/16 05/21/16 Range/Units 05:13 05:13 WBC 6.14 (4.23-9.07) K/mm3 RBC 3.94 L (4.63-6.08) M/mm3 Hgb 12.5 L (13.7-17.5) gm/L Hct 35.8 L (40.1-51.0) % MCV 90.9 (79.0-92.2) fl MCH 31.7 (25.7-32.2) pg MCHC 34.9 (32.2-35.5) g/dl RDW Std Deviation 39.0 (35.1-43.9) fL Plt Count 163 (163-337) K/mm3 MPV 9.4 (9.4-12.3) fl Neut % (Auto) 55.7 (34.0-67.9) % Lymph % (Auto) 35.3 (21.8-53.1) % [place] % (Auto) 5.7 (5.3-12.2) % Eos % (Auto) 2.3 (0.8-7.0) Baso % (Auto) 0.8 (0.1-1.2) % Neut # 3.42 (1.78-5.38) K/mm3 Lymph # 2.17 (1.32-3.57) K/mm3 [place] # 0.35 (0.30-0.82) K/mm3 Eos # 0.14 (0.04-0.54) K/mm3 Baso # 0.05 (0.01-0.08) K/mm3 Sodium 139 (136-145) mEq/L Potassium 3.0 L (3.5-5.1) mEq/L Chloride 104 (98-107) mEq/L Carbon Dioxide 26 (21-32) mEq/L Anion Gap 12.0 (5-15) BUN 9 (7-18) mg/dL Creatinine 0.8 (0.7-1.3) mg/dL Est Cr Clr Drug Dosing TNP Estimated GFR (MDRD) > 60 (>60) mL/min BUN/Creatinine Ratio 11.3 L (14-18) Glucose 107 H (74-106) mg/dL Calcium 7.7 L (8.5-10.1) mg/dL Magnesium 1.7 L (1.8-2.4) mg/dl Med Orders - Current: Current Medications Acetaminophen (Tylenol) 650 mg PO Q4H PRN PRN Reason: Pain (Mild 1-3)/fever Acetaminophen/Hydrocodone Bitart (Agate 325-5 Mg) 1 tab PO Q4H PRN PRN Reason: Pain (moderate 4-6) Albuterol/Ipratropium (Duoneb 3.0-0.5 Mg/3 Ml) 3 ml NEB Q4H PRN PRN Reason: Shortness Of Breath/wheezing Bisacodyl (Dulcolax) 5 mg PO DAILY PRN PRN Reason: Constipation Chlordiazepoxide HCl (Librium) 25 mg PO QID [facility] Last Admin: 05/21/16 08:59 Dose: 25 mg Enoxaparin Sodium (Lovenox) 40 mg SUBCUT DAILY [facility] Last Admin: 05/21/16 09:00 Dose: 40 mg Folic Acid (Folic Acid) 1 mg PO BEDTIME [facility] Last Admin: 05/20/16 20:07 Dose: 1 mg Hydralazine HCl (Apresoline) 20 mg IVPUSH Q4H PRN PRN Reason: Hypertension Hydromorphone HCl (Dilaudid) 0.25 mg IVPUSH Q2H PRN PRN Reason: Pain (severe 7-10) Dextrose/Sodium Chloride (Dextrose 5%-1/2 Ns) 1,000 mls @ 125 mls/hr IV ASDIRECTED [facility] Last Admin: 05/21/16 04:10 Dose: 125 mls/hr Promethazine HCl 12.5 mg/ (Sodium Chloride) 50.5 mls @ 100 mls/hr IV Q6H PRN PRN Reason: Nausea/Vomiting Lorazepam (Ativan) 2 mg IVPUSH Q4H PRN PRN Reason: Seizures Last Admin: 05/21/16 07:42 Dose: 2 mg Lorazepam (Ativan) 0 mg IVPUSH Q4H PRN; Protocol PRN Reason: Withdrawal Symptoms Metoprolol Tartrate (Lopressor) 5 mg IVPUSH Q4H PRN PRN Reason: Tachycardia Last Admin: 05/20/16 22:05 Dose: 5 mg Multivitamins (Thera) 1 each PO BEDTIME [facility] Last Admin: 05/20/16 20:06 Dose: 1 each Ondansetron HCl (Zofran) 4 mg IV Q6H PRN PRN Reason: Nausea/Vomiting Pantoprazole Sodium (Protonix Iv) 40 mg IV Q12HR [facility] Last Admin: 05/21/16 08:59 Dose: 40 mg Polyethylene Glycol (Miralax) 17 gm PO DAILY PRN PRN Reason: Constipation Quetiapine Fumarate (Seroquel) 300 mg PO BEDTIME [facility] Last Admin: 05/20/16 20:07 Dose: 300 mg Senna/Docusate Sodium (Senna Plus) 1 tab PO BID PRN PRN Reason: Constipation Sodium Chloride (Saline Flush) 10 ml FLUSH ASDIRECTED PRN PRN Reason: Keep Vein Open Last Admin: 05/20/16 07:34 Dose: 10 ml Temazepam (Restoril) 15 mg PO BEDTIME PRN PRN Reason: Sleep Last Admin: 05/20/16 17:13 Dose: 15 mg Thiamine HCl (Vitamin B-1) 100 mg PO BEDTIME [facility] Topiramate (Topamax) 25 mg PO BID [facility] Last Admin: 05/21/16 08:59 Dose: 25 mg Discontinued Medications Diphtheria/Tetanus/Acell Pertussis (Boostrix) 0.5 ml IM .ONCE ONE Stop: 05/20/16 16:41 Lactated Ringer's (Ringers, Lactated) 1,000 mls @ 1,000 mls/hr IV .BOLUS ONE Stop: 05/20/16 08:00 Last Admin: 05/20/16 07:04 Dose: 1,000 mls/hr Thiamine HCl 200 mg/ Sodium (Chloride) 102 mls @ 50 mls/hr IV ONETIME ONE Stop: 05/20/16 15:40 Last Admin: 05/20/16 17:18 Dose: 50 mls/hr Pneumococcal Polyvalent Vaccine (Pneumovax 23) 0.5 ml IM .ONCE ONE Stop: 05/20/16 16:41 Topiramate (Topamax) 25 mg PO ONETIME ONE Stop: 05/20/16 14:31 Last Admin: 05/20/16 16:30 Dose: 25 mg - Exam General: alert, oriented, cooperative, no acute distress HEENT: Pupils equal, Pupils reactive, EOMI, Mucous membr. moist/pink Neck: supple, trachea midline, no JVD, no thyromegaly Lungs: Clear to auscultation, Normal respiratory effort Cardiovascular: regular rate, regular rhythm Abdomen: bowel sounds present, soft, no tenderness, no distension (Male) Exam: Deferred Back Exam: normal inspection, full range of motion Extremities: no edema, normal pulses, no tenderness/swelling, no clubbing, no cyanosis, no calf tenderness Peripheral Pulses: 3+: posterior tibial (L), posterior tibial (R), dorsalis pedis (L), dorsalis pedis (R) Skin: warm, dry, intact, other (blisters on 5th digit-left hand) Neurological: no new focal deficit Psy/Mental Status: alert, normal affect, normal mood, other (mild hand tremors) . No: suicidal ideation, homicidal ideation, hallucinations - Problem List Review Problem List Initiated/Reviewed/Updated: Yes - My Orders Last 24 Hours: My Active Orders 05/20/16 13:32 Intake and Output [RC] 04,16,22 Oxygen Therapy [RC] PRN Up With Assistance [RC] ASDIRECTED Up ad Fanny [RC] ASDIRECTED VTE/DVT Education [RC] DAILY Vital Signs [RC] Q4HR Acetaminophen [Tylenol] 650 mg PO Q4H PRN Acetaminophen/HYDROcodone [Agate 325-5 MG] 1 tab PO Q4H PRN Albuterol/Ipratropium [DuoNeb 3.0-0.5 MG/3 ML] 3 ml NEB Q4H PRN Bisacodyl [Dulcolax] 5 mg PO DAILY PRN Docusate Sodium/Sennosides [Senna Plus] 1 tab PO BID PRN HYDROmorphone [Dilaudid] 0.25 mg IVPUSH Q2H PRN Ondansetron [Zofran] 4 mg IV Q6H PRN Polyethylene Glycol 3350 [MiraLAX] 17 gm PO DAILY PRN Promethazine [Phenergan] 12.5 mg Sodium Chloride 0.9% [Normal Saline] 50 ml IV Q6H Temazepam [Restoril] 15 mg PO BEDTIME PRN Resuscitation Status Routine 05/20/16 13:36 RT Aerosol Therapy [RC] ASDIRECTED 05/20/16 13:37 Consult to Case Management [CONS] Routine Consult to Professor Of French [CONS] Routine Consult to Spiritual Care [CONS] Routine 05/20/16 13:38 Consult for Substance Abuse [CONS] Stat 05/20/16 13:39 LORazepam [Ativan] 2 mg IVPUSH Q4H PRN Metoprolol Tartrate [Lopressor] 5 mg IVPUSH Q4H PRN 05/20/16 13:40 CIWAA Assessment [RC] Q1HR LORazepam [Ativan] See Protocol IVPUSH Q4H PRN hydrALAZINE [Apresoline] 20 mg IVPUSH Q4H PRN 05/20/16 13:45 Dextrose 5%-0.45% NaCl [Dextrose 5%-1/2 NS] 1,000 ml IV ASDIRECTED 05/20/16 13:51 Notify Provider Consults [RC] ASDIRECTED Consult to Physician [CONS] Stat 05/20/16 14:00 chlordiazePOXIDE [Librium] 25 mg PO QID 05/20/16 16:40 Vaccines to be Administered [RC] PER UNIT ROUTINE 05/20/16 18:07 Consult to Dietary [Consult to Retail Custodial Associate] [CONS] Routine 05/20/16 21:00 Folic Acid 1 mg PO BEDTIME Multivitamins,Therapeutic [Thera] 1 each PO BEDTIME Pantoprazole [Protonix IV] 40 mg IV Q12HR QUEtiapine [SEROquel] 300 mg PO BEDTIME Topiramate [Topamax] 25 mg PO BID 05/20/16 Lunch Regular Diet [DIET] 05/21/16 09:00 Enoxaparin [Lovenox] 40 mg SUBCUT DAILY 05/21/16 21:00 Thiamine [Vitamin B-1] 100 mg PO BEDTIME 05/22/16 05:11 BASIC METABOLIC PANEL,BMP [CHEM] AM CBC WITH AUTO DIFF [HEME] AM MAGNESIUM [CHEM] AM 05/23/16 05:11 BASIC METABOLIC PANEL,BMP [CHEM] AM CBC WITH AUTO DIFF [HEME] AM MAGNESIUM [CHEM] AM 05/24/16 05:11 BASIC METABOLIC PANEL,BMP [CHEM] AM MAGNESIUM [CHEM] AM 05/25/16 05:11 MAGNESIUM [CHEM] AM - Plan Plan:: Assessment: ETOH Intoxication with Withdrawal Symptoms - RONNIE 0.41 - CIWV protocol: CIWA score is now bet 5-6 - He is on his way out the door when he got symptomatic and started having visual hallucinations - Ativan/Librium/Topamax - Hydralzine and IVP BB for HR/BP control - Ativan for Abortive Seizure and Withdrawal Symptoms - Restoril for Insomnia - Patient in tears and wants to get better - He is not opposed to going for chemical dependency rehab Hx/o Meth Abuse - He admits to meth use via ingestion but not IVDU (although he has needle track thompson on ante-cubital: he states, 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) - UDS: negative - Counseled on Substance Abuse - SA/Psych consult Chronic ETOH Abuse - CIWA protocol - He drinks heavily about 320 ml x 4-5 daily, he has an empty bottle of hard liquor outside his room - He supposed to shows up to court today but started drinking alcohol last night Transaminitis - 2/2 ETOH Abuse - Likely improved E-Lytes Abnormality - K 3.0 and Mg 1.7 - Pharmacy to replete and monitor Plan: Patient is stable Transfer to Med-Surg w/ Tele Continue current treatment: CIWA protocol, Ativan for Abortive Seizure and Withdrawal Symptoms, Restoril for Insomnia and PRN meds for Withdrawal Symptoms Aspiration/Seizure Precautions SW/CM d/c planning Awaiting SA/Psych consult Code Status: 1 D/c to Inpatient Rehab once medically cleared LOS anticipate > 96 hrs pending rehab placement
[2016-05-21] MEDS: Acetaminophen/HYDROcodone 325-5 MG Tab PO PRN (11:07)
[2016-05-21] MEDS: Potassium Chloride 20 MEQ Tab.ER PO SCH ×2 (13:54→18:18)
[2016-05-21] MEDS ORDERED: Magnesium Sulfate/Water 2 GM in Premix Bag 1 BAG IV ONE (14:00)
--- NOTE | 2016-05-21 17:51 | CONS ---
CONSULTING PHYSICIAN: Dewey Diaz MD DATE OF CONSULTATION: 05/21/2016 This is a 60-minute inpatient clinical event. IDENTIFICATION: The patient is a 41-year-old male who is admitted to the inpatient ICU at [facility] in [place], [place], on 05/20/2016, secondary to complications from chronic and excessive alcohol abuse and meth use. The patient is seen for psychiatric consultation per Treatment Team request. CHIEF COMPLAINT: "I have been drinking." HISTORY OF PRESENT ILLNESS: The patient is a 41-year-old male who is currently detoxing from heavy alcohol abuse and dependance. The patient also acknowledges that he "used some bad meth" recently and this has complicated his clinical situation. The patient states that he has been drinking heavily both beer and hard liquor for the past month. He states his #1 goal is "to remain sober" and find a job once he is medically stabilized. On admission, the patient had a blood-alcohol level of 0.41. Currently, he feels that his mood is good. He does not feel that he needs any type of psychiatric medications, but he is acknowledging that, prior to admission, he was experiencing auditory hallucinations, visual hallucinations, and increased paranoia the fact that he attributes to "the bad meth" that he had used. He denies that he is suicidal or homicidal at this point in time. MEDICATIONS: Medications at the time of admission, the patient most likely was prescribed Seroquel XR 300 mg, but he had not been taking that for a while. On admission, the patient has been getting; 1. Regular Seroquel 300 mg at bedtime. 2. Librium 25 mg q.i.d. 3. Ativan p.r.n. CIWA protocol. 4. Topamax 25 mg b.i.d. 5. Restoril 15 mg at bedtime. 6. Thiamine 100 mg daily. 7. daily. ALLERGIES: No known drug allergies. PAST MEDICAL HISTORY: Negative. REVIEW OF SYSTEMS: Negative for any acute difficulties or complications currently with his GI, , pulmonary, cardiac, endocrine, blood, immune, skin, or musculoskeletal system. FAMILY PSYCHIATRIC AND CD HISTORY: Father may have had a history of alcohol. PAST PSYCHIATRIC AND CD HISTORY: The patient essentially denied any previous psychiatric history. Denies any previous hospitalizations or treatments. Denies any previous suicide attempts. Denies any past psychiatric medication history. He states that he has recently been using alcohol and meth. SOCIAL HISTORY: The patient was born in [place], [place]; and raised in [place]. The patient's parents were . He himself was x1. He is x1. He has 2 daughters from the marriage. He is not involved in any current relationships. He is living in [place] in his own place. Previously, he had been living with his sister. He states he served some time in the [employer]. He also reports some legal difficulties and states that he had a court date that he missed yesterday. Buddhism in terms of his stevan formation. MENTAL STATUS EXAM: The patient is a 41-year-old white male in no apparent distress. Speech is of rapid rate and rhythm. The patient is cognitively oriented x2, to person and place, but not to date. Psychomotor activity is within normal limits. There are no abnormal motor movements or tics observed. Gait and station are not observed as the patient is bedbound for the entirety of the interview. Mood is "good." Affect is cooperative overall for the purposes of the inpatient psychiatric consult. Thought content significant for some reported non-command type auditory hallucinations, visual hallucinations, or paranoid themes prior to admission. Thought process are significant for racing thoughts, ruminations, and some thought blocking. There are no acute manic symptoms or loose associations evident. Judgment and insight appear somewhat impaired secondary to possible alcohol withdrawal and complications from heavy alcohol and methamphetamine use. Motivation for help appears fair to poor. VITAL SIGNS: 124/96, 89, 16, 98.1 degrees. IMPRESSION: [place] I: 1. Alcohol dependence, F10.20. 2. Suspected meth abuse versus dependence. 3. Psychosis, not otherwise specified, F29. 4. Rule out bipolar affective disease. [place] II: None. [place] III: Signs and symptoms of alcohol withdrawal. [place] IV: Severe. [place] V: 50. PLAN: 1. Sobriety. 2. Recommend inpatient chemical dependency treatment when the patient has medically stabilized for his alcohol dependence and likely methamphetamine dependence. 3. AA rep while the patient remains on the unit. 4. Pastoral guidance while the patient remains on the unit. 5. CD consult was recommended to be ordered if not already done. 6. Recommend continuing current treatment. Plan already initiated by inpatient medical treatment team for his psychiatric issues and withdrawal symptoms. 7. Recommend that once the patient is medically stabilized and receives appropriate chemical dependency treatment, that he followup with outpatient psychiatry when he is discharged back to community. 8. We will continue to follow with the patient on a regular basis as needed while he remains on the inpatient medical unit. 9. We will follow up with the patient sooner if any complications in the interim. 10.Crisis plan has been placed. NIURKA /[id number]
[2016-05-21] MEDS: QUEtiapine 100 MG Tab PO SCH (21:15)
[2016-05-21] MEDS: Folic Acid 1 MG Tab PO SCH (21:16)
[2016-05-21] MEDS: Multivitamins,Therapeutic Tab PO SCH (21:16)
[2016-05-21] MEDS: Pantoprazole 40 MG Tab.CR PO SCH (21:16)
[2016-05-21] MEDS: Thiamine 100 MG Tab PO SCH (21:16)
[2016-05-22] MEDS: LORazepam 2 MG/ML MDV IVPUSH PRN ×3 (01:37→07:23)
[2016-05-22] MEDS ORDERED: QUEtiapine 25 MG Tab PO ONE (05:10)
[2016-05-22] MEDS ORDERED: cloNIDine 0.1 MG Tab PO ONE (05:12)
[2016-05-22] MEDS ORDERED: QUEtiapine 100 MG Tab PO ONE (05:21)
--- NOTE | 2016-05-22 07:31 | PCM.PN ---
- General Info Date of Service: 05/22/16 Admission Dx/Problem (Free Text): ETOH Intoxication with Withdrawal Subjective Update: Follow Up Functional Status: Reports: pain controlled, tolerating diet, ambulating, urinating. Denies: new symptoms - Review of Systems General: Denies: fever, weakness, fatigue, malaise HEENT: Reports: no symptoms Pulmonary: Denies: shortness of breath Cardiovascular: Denies: chest pain Gastrointestinal: Denies: Abdominal pain, Nausea, Vomiting Genitourinary: Reports: no symptoms Musculoskeletal: Reports: no symptoms Skin: Denies: jaundice, bruising, pruritis Neurological: Denies: dizziness, seizure, weakness Psychiatric: Denies: depression, anxiety, agitation, hallucinations Systems Review Comment:: No overnight issues. 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 His CIWA score was in the 20s. He is much better now, calm and comfortable. - Patient Data Vitals - most recent: Last Vital Signs Temp 37.0 C 05/22/16 02:49 Pulse 76 05/22/16 02:49 Resp 14 05/22/16 02:49 BP 142/93 H 05/22/16 05:29 Pulse Ox 98 05/22/16 02:49 Weight - most recent: 74.298 kg I&O - last 24 hours: Intake & Output 05/21/16 05/22/16 05/22/16 22:59 06:59 14:59 Intake Total 345 600 Output Total 800 550 Balance -455 50 Lab Results last 24 hrs: Laboratory Results - last 24 hr 05/22/16 05/22/16 Range/Units 05:53 05:53 WBC 6.04 (4.23-9.07) K/mm3 RBC 4.50 L (4.63-6.08) M/mm3 Hgb 14.1 (13.7-17.5) gm/L Hct 40.3 (40.1-51.0) % MCV 89.6 (79.0-92.2) fl MCH 31.3 (25.7-32.2) pg MCHC 35.0 (32.2-35.5) g/dl RDW Std Deviation 39.8 (35.1-43.9) fL Plt Count 174 (163-337) K/mm3 MPV 9.4 (9.4-12.3) fl Neut % (Auto) 58.1 (34.0-67.9) % Lymph % (Auto) 29.0 (21.8-53.1) % [place] % (Auto) 8.1 (5.3-12.2) % Eos % (Auto) 3.6 (0.8-7.0) Baso % (Auto) 1.0 (0.1-1.2) % Neut # 3.51 (1.78-5.38) K/mm3 Lymph # 1.75 (1.32-3.57) K/mm3 [place] # 0.49 (0.30-0.82) K/mm3 Eos # 0.22 (0.04-0.54) K/mm3 Baso # 0.06 (0.01-0.08) K/mm3 Sodium 137 (136-145) mEq/L Potassium 3.5 (3.5-5.1) mEq/L Chloride 103 (98-107) mEq/L Carbon Dioxide 21 (21-32) mEq/L Anion Gap 16.5 H (5-15) BUN 11 (7-18) mg/dL Creatinine 0.9 (0.7-1.3) mg/dL Est Cr Clr Drug Dosing 106.61 mL/min Estimated GFR (MDRD) > 60 (>60) mL/min BUN/Creatinine Ratio 12.2 L (14-18) Glucose 104 (74-106) mg/dL Calcium 8.5 (8.5-10.1) mg/dL Magnesium 2.2 (1.8-2.4) mg/dl Med Orders - Current: Current Medications Acetaminophen (Tylenol) 650 mg PO Q4H PRN PRN Reason: Pain (Mild 1-3)/fever Acetaminophen/Hydrocodone Bitart ([place] 325-5 Mg) 1 tab PO Q4H PRN PRN Reason: Pain (moderate 4-6) Last Admin: 05/21/16 11:07 Dose: 1 tab Albuterol/Ipratropium (Duoneb 3.0-0.5 Mg/3 Ml) 3 ml NEB Q4H PRN PRN Reason: Shortness Of Breath/wheezing Bisacodyl (Dulcolax) 5 mg PO DAILY PRN PRN Reason: Constipation Chlordiazepoxide HCl (Librium) 25 mg PO QID [facility] Last Admin: 05/21/16 21:16 Dose: 25 mg Clonidine HCl (Catapres) 0.1 mg PO Q8H [facility] Stop: 05/24/16 09:00 Enoxaparin Sodium (Lovenox) 40 mg SUBCUT DAILY [facility] Last Admin: 05/21/16 09:00 Dose: 40 mg Folic Acid (Folic Acid) 1 mg PO BEDTIME [facility] Last Admin: 05/21/16 21:16 Dose: 1 mg Hydralazine HCl (Apresoline) 20 mg IVPUSH Q4H PRN PRN Reason: Hypertension Hydromorphone HCl (Dilaudid) 0.25 mg IVPUSH Q2H PRN PRN Reason: Pain (severe 7-10) Promethazine HCl 12.5 mg/ (Sodium Chloride) 50.5 mls @ 100 mls/hr IV Q6H PRN PRN Reason: Nausea/Vomiting Lorazepam (Ativan) 2 mg IVPUSH Q4H PRN PRN Reason: Seizures Last Admin: 05/21/16 07:42 Dose: 2 mg Lorazepam (Ativan) 0 mg IVPUSH Q4H PRN; Protocol PRN Reason: Withdrawal Symptoms Last Admin: 05/22/16 07:23 Dose: 2 mg Magnesium Sulfate (Pharmacy To Dose - Magnesium Replacement) 0 dose .XX ASDIRECTED PRN PRN Reason: RX DOSE Metoprolol Tartrate (Lopressor) 5 mg IVPUSH Q4H PRN PRN Reason: Tachycardia Last Admin: 05/20/16 22:05 Dose: 5 mg Multivitamins (Thera) 1 each PO BEDTIME [facility] Last Admin: 05/21/16 21:16 Dose: 1 each Ondansetron HCl (Zofran) 4 mg IV Q6H PRN PRN Reason: Nausea/Vomiting Pantoprazole Sodium (Protonix) 40 mg PO Q12HR [facility] Last Admin: 05/21/16 21:16 Dose: 40 mg Polyethylene Glycol (Miralax) 17 gm PO DAILY PRN PRN Reason: Constipation Potassium Chloride (Pharmacy To Dose - Potassium Replacement) 0 dose .XX ASDIRECTED PRN PRN Reason: RX DOSE Quetiapine Fumarate (Seroquel) 300 mg PO BEDTIME [facility] Last Admin: 05/21/16 21:15 Dose: 300 mg Quetiapine Fumarate (Seroquel) 50 mg PO DAILY [facility] Senna/Docusate Sodium (Senna Plus) 1 tab PO BID PRN PRN Reason: Constipation Sodium Chloride (Saline Flush) 10 ml FLUSH ASDIRECTED PRN PRN Reason: Keep Vein Open Last Admin: 05/20/16 07:34 Dose: 10 ml Temazepam (Restoril) 15 mg PO BEDTIME PRN PRN Reason: Sleep Last Admin: 05/20/16 17:13 Dose: 15 mg Thiamine HCl (Vitamin B-1) 100 mg PO BEDTIME [facility] Last Admin: 05/21/16 21:16 Dose: 100 mg Topiramate (Topamax) 25 mg PO BID [facility] Last Admin: 05/21/16 21:15 Dose: 25 mg Discontinued Medications Clonidine HCl (Catapres) 0.2 mg PO ONETIME ONE Stop: 05/22/16 05:13 Last Admin: 05/22/16 05:28 Dose: 0.2 mg Diphtheria/Tetanus/Acell Pertussis (Boostrix) 0.5 ml IM .ONCE ONE Stop: 05/20/16 16:41 Lactated Ringer's (Ringers, Lactated) 1,000 mls @ 1,000 mls/hr IV .BOLUS ONE Stop: 05/20/16 08:00 Last Admin: 05/20/16 07:04 Dose: 1,000 mls/hr Dextrose/Sodium Chloride (Dextrose 5%-1/2 Ns) 1,000 mls @ 125 mls/hr IV ASDIRECTED [facility] Last Admin: 05/21/16 04:10 Dose: 125 mls/hr Thiamine HCl 200 mg/ Sodium (Chloride) 102 mls @ 50 mls/hr IV ONETIME ONE Stop: 05/20/16 15:40 Last Admin: 05/20/16 17:18 Dose: 50 mls/hr Magnesium Sulfate 2 gm/ Premix 50 mls @ 25 mls/hr IV ONETIME ONE Stop: 05/21/16 15:59 Last Admin: 05/21/16 13:53 Dose: 25 mls/hr Pantoprazole Sodium (Protonix Iv) 40 mg IV Q12HR [facility] Last Admin: 05/21/16 08:59 Dose: 40 mg Pneumococcal Polyvalent Vaccine (Pneumovax 23) 0.5 ml IM .ONCE ONE Stop: 05/20/16 16:41 Potassium Chloride (Klor-Con M20) 20 meq PO Q3H L[facility] Stop: 05/21/16 17:01 Last Admin: 05/21/16 18:18 Dose: 20 meq Quetiapine Fumarate (Seroquel) 50 mg PO ONETIME ONE Stop: 05/22/16 05:11 Last Admin: 05/22/16 05:32 Dose: Not Given Quetiapine Fumarate (Seroquel) 100 mg PO ONETIME ONE Stop: 05/22/16 05:22 Last Admin: 05/22/16 05:30 Dose: 100 mg Topiramate (Topamax) 25 mg PO ONETIME ONE Stop: 05/20/16 14:31 Last Admin: 05/20/16 16:30 Dose: 25 mg - Exam General: alert, oriented, cooperative, no acute distress HEENT: Pupils equal, Pupils reactive, EOMI, Mucous membr. moist/pink Neck: supple, trachea midline, no JVD, no thyromegaly Lungs: Clear to auscultation, Normal respiratory effort Cardiovascular: regular rate, regular rhythm Abdomen: bowel sounds present, soft, no tenderness, no distension (Male) Exam: Deferred Back Exam: normal inspection, decreased range of motion Extremities: no edema, normal pulses, no tenderness/swelling, no clubbing, no cyanosis, no calf tenderness Peripheral Pulses: 3+: posterior tibial (L), posterior tibial (R), dorsalis pedis (L), dorsalis pedis (R) Skin: warm, dry, intact Neurological: no new focal deficit Psy/Mental Status: alert, normal affect, normal mood. No: agitated, suicidal ideation, homicidal ideation, hallucinations, withdrawal symptoms - Problem List Review Problem List Initiated/Reviewed/Updated: Yes - My Orders Last 24 Hours: My Active Orders 05/21/16 09:00 Enoxaparin [Lovenox] 40 mg SUBCUT DAILY 05/21/16 13:08 Magnesium Rep Pharmacy to Dose [Pharmacy to Dose - Magnesium Replacement] 0 dose .XX ASDIRECTED PRN 05/21/16 13:09 Potassium Rep Pharmacy to Dose [Pharmacy to Dose - Potassium Replacement] 0 dose .XX ASDIRECTED PRN 05/21/16 15:39 Patient Status [ADT] Routine Transfer Patient (Change bed) [ADT] Routine 05/21/16 21:00 Pantoprazole [Protonix] 40 mg PO Q12HR Thiamine [Vitamin B-1] 100 mg PO BEDTIME 05/22/16 13:00 cloNIDine [Catapres] 0.1 mg PO Q8H 05/23/16 05:11 BASIC METABOLIC PANEL,BMP [CHEM] AM CBC WITH AUTO DIFF [HEME] AM MAGNESIUM [CHEM] AM 05/23/16 09:00 QUEtiapine [SEROquel] 50 mg PO DAILY 05/24/16 05:11 BASIC METABOLIC PANEL,BMP [CHEM] AM MAGNESIUM [CHEM] AM 05/25/16 05:11 MAGNESIUM [CHEM] AM - Plan Plan:: Assessment: ETOH Intoxication with Withdrawal Symptoms - RONNIE 0.41 - CIWA protocol: CIWA score was considerably high last night but is now in the low range since he has been medicated - He is on his way out the door when he got symptomatic and started having visual hallucinations - Ativan/Librium/Topamax - Hydralzine and IVP BB for HR/BP control - Ativan for Abortive Seizure and Withdrawal Symptoms - Restoril for Insomnia - Patient in tears and wants to get better - He is not opposed to going for chemical dependency rehab Hx/o Meth Abuse - He admits to meth use via ingestion but not IVDU (although he has needle track thompson on ante-cubital: he states, 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) - UDS: negative - Counseled on Substance Abuse - SA/Psych consult Chronic ETOH Abuse - CIWA protocol - He drinks heavily about 320 ml x 4-5 daily, he has an empty bottle of hard liquor outside his room - He supposed to shows up to court today but started drinking alcohol last night Resolved: Transaminitis - 2/2 ETOH Abuse - Likely improved E-Lytes Abnormality - K 3.0 and Mg 1.7 - Pharmacy to replete and monitor Plan: Patient remains clinically stable Continue current treatment: CIWA protocol, Ativan for Abortive Seizure and Withdrawal Symptoms, Restoril for Insomnia and PRN meds for Withdrawal Symptoms Aspiration/Seizure Precautions SW/CM d/c planning Awaiting SA/Psych consult Code Status: 1 D/c to Inpatient Rehab once medically cleared LOS anticipate > 96 hrs pending rehab placement
[2016-05-22] MEDS: Topiramate 25 MG Tab PO SCH ×2 (09:32→20:59)
[2016-05-22] MEDS: Pantoprazole 40 MG Tab.CR PO SCH ×2 (09:32→20:59)
[2016-05-22] MEDS: chlordiazePOXIDE 25 MG Cap PO SCH ×4 (09:32→20:59)
[2016-05-22] MEDS: Enoxaparin 40 MG/0.4 ML Syringe SUBCUT SCH (09:36)
[2016-05-22] MEDS: cloNIDine 0.1 MG Tab PO SCH ×2 (12:51→21:00)
[2016-05-22] MEDS: Acetaminophen/HYDROcodone 325-5 MG Tab PO PRN (18:34)
--- NOTE | 2016-05-22 20:34 | CONS ---
CONSULTING PHYSICIAN: Remington Warner LAC DATE OF CONSULTATION: 05/21/2016 TIME: 7:20 p.m. The patient is a 41-year-old male, who was brought to [facility] by a taxicab driver on 05/20/2016 [place]. He presents with a RONNIE 0.41, hallucinations, and frostbite. An alcohol and drug consultation was requested by his medical treatment team. SOURCE OF INFORMATION: Patient report, family, hospital records, RN and Social Work notes, criminal history check, and PDMR which stands for prescription drug monitoring report. Prior to the consultation, the patient's cousin and aunt requested to speak with me and they shared the patient's background information as well as inquired about treatment options. The patient's family accompanied me to the patient's room, and the patient signed a SHAUN to allow his family to be present during the evaluation. HISTORY OF PRESENT ILLNESS: The patient reports he was born in [place], [place], and lived there until he was 5 to 6 years old. His parents , and he and the patient's mother moved to [place]. He was raised primarily in [place], [place]. His mother about 8 years ago while the patient was in custodial. His father is still living in [place]. The patient reports that he graduated from high school in 1995 and maintained above-average grades. 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 After high school, he enlisted in the [employer], went to boot camp at [place], [place]. He suffered a back injury during training exercises. He reports serving approximately 180 days. The patient reports that he began to drink during this time in the [employer] to assist him with his back pain. After the [employer], he returned to [place] and went to the [email or web address]. 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 The patient was at age 24 in 1998. They were and he has 2 children. It is unclear if he has a current relationship with his children. 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 The patient's self-report is tangential from this point on. But it appears that the patient began to experiment with drugs, cocaine, ecstasy, acid, and methamphetamine during his mid 20s; and he eventually lost his marriage, his children, his home, his employment, as well as undertaking a criminal record. The patient reports that at one point, he was homeless. The patient moved to [place] approximately 4 years ago and has worked various jobs. He recently rented an apartment on his own. He is unemployed, but has family support. SUBSTANCE ABUSE HISTORY: Alcohol: The patient reports that he began drinking while in the [employer] and would drink when he could, anywhere from a couple of beers to a half a fifth of whiskey per occasion. He continued to drink when he got back to [place]; however, it is unclear how much or how often as the client equivocates when asked questions regarding his substance use. According to collateral from family and the patient's criminal history, he was drinking excessively during his 20s and 30s as he caught at least 2 DUIs as well as other alcohol-related offenses for which he was ordered to complete alcohol and drug treatment. He does report being homeless at one point and drinking with other homeless people when they could get alcohol. On his way to [place], the patient was arrested for road rage and DUI and had to sit a month in custodial in [place] according to collateral information. Since he has been in [place], it appears from nursing notes, family report, and self-report that the patient has not been sober, but drinks daily anywhere from a 10 pack of shooters with or without a pint of whiskey and/or beer. The patient does report that he drinks a 16-ounce tall beer daily. On this admission, the patient presented with a RONNIE of 0.41 and was still lucid which indicates he is very used to drinking to this RONNIE level as most everyone else would suffer that this RONNIE level. The last time he drank was right before coming to the hospital. In his belongings is an empty pint of [place] whiskey. The patient reports that his grandfather and father are alcoholics. Methamphetamine: When the patient is asked about his methamphetamine use, he again becomes evasive and tangential. He reports that he has only binged on methamphetamine 3 times and used only 5 times in his life. However, his first reported use of methamphetamine was during his early 20s, while he was . He is now 41 and is still using methamphetamine as his April admission to [facility] was directly related to methamphetamine use. Police brought him to ER after they found him naked and wandering the streets. At that time, the patient reported to emergency room doctor and nurses that he uses methamphetamine and wanted to stop. The patient was diagnosed at that time by the ER attending physician with a stimulant use disorder. On this admission, the patient reports using methamphetamine as well. On the other hand, the patient denies any continued use of methamphetamine. Cocaine: The patient reports that he used cocaine in his early 20s and does not report further. The patient demonstrates he continues to use amphetamines. Dextromethorphan: The patient is not wanting to discuss his use of DXM (Robitussin). However, he does report use of 350-1000 mg. This may achieve a plateau 3 intoxication manifesting with hallucinations, perceptual disturbance, and body incoordination. Collateral information obtained suggests the patient during his arrest in [place] had 3 empty bottles of Robitussin along with a can of still reserved malt liquor in his car. The patient does report that he enjoys DXM high as he appreciates the hallucinogen effect. LSD (acid): The patient was not asked about his use of LSD or acid. However, collateral information obtained indicated the patient is fond of acid and hallucinogenic effects. Throughout the patient's substance abuse history, he equivocates and is evasive. However, the patient could not remember the last time he was sober and is demonstrating that he is unable to maintain or achieve sobriety. Collateral reports indicate the patient has been maladaptively using polysubstances for the past 15 years. DIAGNOSIS: The patient meets DSM5 criteria for the following diagnoses: 1. F10.20, alcohol use disorder, severe. 2. F10.229, alcohol intoxication, comorbid. 3. F10.232, alcohol withdrawal with perceptual disturbance. 4. 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 5. F15.20, stimulant use disorder, severe, methamphetamine type. 6. F15.20, stimulant use disorder, severe. ASAM DIMENSIONS: 1. Dimension 1: Score 3. The patient tolerates and mehnaz with withdrawal discomfort poorly. Presents with severe intoxication, RONNIE 0.41, such that he endangers himself or others. 2. Dimension 2: Score 0. The patient displays full functioning with good ability to cope with physical discomfort. 3. Dimension 3: Score 2. The patient has difficulty with impulse control and lacks coping skills. He has difficulty functioning in significant life areas and displays symptoms of behavioral or emotional problems. However, he is able to participate in most treatment activities. 4. Dimension 4: Score 3. The patient has minimal awareness of his addiction and is minimally cooperative. 5. Dimension 5: Score 3: The patient has little recognition and understanding of relapse and recidivism issues and displays high vulnerability for further substance use or mental health problems. 6. Dimension 6: Score 3. The patient is not engaged in structured meaningful activity, and there is criminal justice system involvement. ASSESSMENT SUMMARY: The patient appears to be a man, who battles biologically driven poly- dependence. It appears he went from an achieving young person to a man who has lost everything in his life. He is minimally cooperative in this evaluation as he detailed the events of his life but resisted discussing his substance use by equivocating, digressing, projecting, and feigning an inability to remember. His family is very worried about him and fear that without professional intervention the patient's substance use could result in his . The patient is demonstrating serious impairment in significant life areas, and there is great concern for this patient's continued welfare as he has presented twice in the past month as a danger to himself or others. RICARDO Carlson; and Dr. Laws were consulted. We are in agreement that for the patient's safety, his need for professional addiction, his intervention, and family's concern, that a petition for involuntary commitment should be executed. The patient has no insurance currently and will have to be committed to the [facility]. RECOMMENDATION: The patient meets level 3.5, clinically managed, medium intensity residential treatment. A petition for involuntary commitment was executed on 05/21/2016 for the [facility]. RICARDO Carlson, will coordinate continued care and patient transfer. [facility] /[id number]
[2016-05-22] MEDS: Multivitamins,Therapeutic Tab PO SCH (20:59)
[2016-05-22] MEDS: Folic Acid 1 MG Tab PO SCH (20:59)
[2016-05-22] MEDS: QUEtiapine 100 MG Tab PO SCH (21:01)
[2016-05-22] MEDS: Thiamine 100 MG Tab PO SCH (21:01)
--- NOTE | 2016-05-23 00:23 | PCM.PN ---
- General Info Date of Service: 05/23/16 Admission Dx/Problem (Free Text): ETOH Intoxication with Withdrawal Subjective Update: Follow Up Functional Status: Reports: pain controlled, tolerating diet, ambulating, urinating. Denies: new symptoms - Review of Systems General: Denies: fever, chills HEENT: Reports: no symptoms Pulmonary: Reports: shortness of breath Cardiovascular: Denies: chest pain Gastrointestinal: Denies: Abdominal pain, Nausea, Vomiting Genitourinary: Reports: no symptoms Musculoskeletal: Reports: no symptoms Skin: Reports: no symptoms Neurological: Denies: confusion, dizziness, seizure, weakness Psychiatric: Denies: depression, anxiety, agitation, hallucinations, suicidal ideation, homicidal ideation Systems Review Comment:: No overnight or acute issues. He is essentially well. he has no new complaints. - Patient Data Vitals - most recent: Last Vital Signs Temp 37.0 C 05/22/16 16:54 Pulse 80 05/22/16 16:54 Resp 18 05/22/16 16:54 BP 113/70 05/22/16 21:00 Pulse Ox 99 05/22/16 16:54 Weight - most recent: 74.298 kg I&O - last 24 hours: Intake & Output 05/22/16 05/22/16 05/23/16 14:59 22:59 07:59 Intake Total 60 1350 Output Total 500 Balance 60 850 Lab Results last 24 hrs: Laboratory Results - last 24 hr 05/22/16 05/22/16 Range/Units 05:53 05:53 WBC 6.04 (4.23-9.07) K/mm3 RBC 4.50 L (4.63-6.08) M/mm3 Hgb 14.1 (13.7-17.5) gm/L Hct 40.3 (40.1-51.0) % MCV 89.6 (79.0-92.2) fl MCH 31.3 (25.7-32.2) pg MCHC 35.0 (32.2-35.5) g/dl RDW Std Deviation 39.8 (35.1-43.9) fL Plt Count 174 (163-337) K/mm3 MPV 9.4 (9.4-12.3) fl Neut % (Auto) 58.1 (34.0-67.9) % Lymph % (Auto) 29.0 (21.8-53.1) % Tyrrell % (Auto) 8.1 (5.3-12.2) % Eos % (Auto) 3.6 (0.8-7.0) Baso % (Auto) 1.0 (0.1-1.2) % Neut # 3.51 (1.78-5.38) K/mm3 Lymph # 1.75 (1.32-3.57) K/mm3 Tyrrell # 0.49 (0.30-0.82) K/mm3 Eos # 0.22 (0.04-0.54) K/mm3 Baso # 0.06 (0.01-0.08) K/mm3 Sodium 137 (136-145) mEq/L Potassium 3.5 (3.5-5.1) mEq/L Chloride 103 (98-107) mEq/L Carbon Dioxide 21 (21-32) mEq/L Anion Gap 16.5 H (5-15) BUN 11 (7-18) mg/dL Creatinine 0.9 (0.7-1.3) mg/dL Est Cr Clr Drug Dosing 106.61 mL/min Estimated GFR (MDRD) > 60 (>60) mL/min BUN/Creatinine Ratio 12.2 L (14-18) Glucose 104 (74-106) mg/dL Calcium 8.5 (8.5-10.1) mg/dL Magnesium 2.2 (1.8-2.4) mg/dl Med Orders - Current: Current Medications Acetaminophen (Tylenol) 650 mg PO Q4H PRN PRN Reason: Pain (Mild 1-3)/fever Acetaminophen/Hydrocodone Bitart ([place] 325-5 Mg) 1 tab PO Q4H PRN PRN Reason: Pain (moderate 4-6) Last Admin: 05/22/16 18:34 Dose: 1 tab Albuterol/Ipratropium (Duoneb 3.0-0.5 Mg/3 Ml) 3 ml NEB Q4H PRN PRN Reason: Shortness Of Breath/wheezing Bisacodyl (Dulcolax) 5 mg PO DAILY PRN PRN Reason: Constipation Chlordiazepoxide HCl (Librium) 25 mg PO QID [facility] Last Admin: 05/22/16 20:59 Dose: 25 mg Clonidine HCl (Catapres) 0.1 mg PO Q8H [facility] Stop: 05/24/16 09:00 Last Admin: 05/22/16 21:00 Dose: 0.1 mg Enoxaparin Sodium (Lovenox) 40 mg SUBCUT DAILY [facility] Last Admin: 05/22/16 09:36 Dose: 40 mg Folic Acid (Folic Acid) 1 mg PO BEDTIME [facility] Last Admin: 05/22/16 20:59 Dose: 1 mg Hydralazine HCl (Apresoline) 20 mg IVPUSH Q4H PRN PRN Reason: Hypertension Hydromorphone HCl (Dilaudid) 0.25 mg IVPUSH Q2H PRN PRN Reason: Pain (severe 7-10) Promethazine HCl 12.5 mg/ (Sodium Chloride) 50.5 mls @ 100 mls/hr IV Q6H PRN PRN Reason: Nausea/Vomiting Lorazepam (Ativan) 2 mg IVPUSH Q4H PRN PRN Reason: Seizures Last Admin: 05/21/16 07:42 Dose: 2 mg Lorazepam (Ativan) 0 mg IVPUSH Q4H PRN; Protocol PRN Reason: Withdrawal Symptoms Last Admin: 05/22/16 07:23 Dose: 2 mg Magnesium Sulfate (Pharmacy To Dose - Magnesium Replacement) 0 dose .XX ASDIRECTED PRN PRN Reason: RX DOSE Metoprolol Tartrate (Lopressor) 5 mg IVPUSH Q4H PRN PRN Reason: Tachycardia Last Admin: 05/20/16 22:05 Dose: 5 mg Multivitamins (Thera) 1 each PO BEDTIME [facility] Last Admin: 05/22/16 20:59 Dose: 1 each Ondansetron HCl (Zofran) 4 mg IV Q6H PRN PRN Reason: Nausea/Vomiting Pantoprazole Sodium (Protonix) 40 mg PO Q12HR [facility] Last Admin: 05/22/16 20:59 Dose: 40 mg Polyethylene Glycol (Miralax) 17 gm PO DAILY PRN PRN Reason: Constipation Potassium Chloride (Pharmacy To Dose - Potassium Replacement) 0 dose .XX ASDIRECTED PRN PRN Reason: RX DOSE Quetiapine Fumarate (Seroquel) 300 mg PO BEDTIME [facility] Last Admin: 05/22/16 21:01 Dose: 300 mg Quetiapine Fumarate (Seroquel) 50 mg PO DAILY [facility] Senna/Docusate Sodium (Senna Plus) 1 tab PO BID PRN PRN Reason: Constipation Sodium Chloride (Saline Flush) 10 ml FLUSH ASDIRECTED PRN PRN Reason: Keep Vein Open Last Admin: 05/20/16 07:34 Dose: 10 ml Temazepam (Restoril) 15 mg PO BEDTIME PRN PRN Reason: Sleep Last Admin: 05/20/16 17:13 Dose: 15 mg Thiamine HCl (Vitamin B-1) 100 mg PO BEDTIME [facility] Last Admin: 05/22/16 21:01 Dose: 100 mg Topiramate (Topamax) 25 mg PO BID [facility] Last Admin: 05/22/16 20:59 Dose: 25 mg Discontinued Medications Clonidine HCl (Catapres) 0.2 mg PO ONETIME ONE Stop: 05/22/16 05:13 Last Admin: 05/22/16 05:28 Dose: 0.2 mg Diphtheria/Tetanus/Acell Pertussis (Boostrix) 0.5 ml IM .ONCE ONE Stop: 05/20/16 16:41 Lactated Ringer's (Ringers, Lactated) 1,000 mls @ 1,000 mls/hr IV .BOLUS ONE Stop: 05/20/16 08:00 Last Admin: 05/20/16 07:04 Dose: 1,000 mls/hr Dextrose/Sodium Chloride (Dextrose 5%-1/2 Ns) 1,000 mls @ 125 mls/hr IV ASDIRECTED [facility] Last Admin: 05/21/16 04:10 Dose: 125 mls/hr Thiamine HCl 200 mg/ Sodium (Chloride) 102 mls @ 50 mls/hr IV ONETIME ONE Stop: 05/20/16 15:40 Last Admin: 05/20/16 17:18 Dose: 50 mls/hr Magnesium Sulfate 2 gm/ Premix 50 mls @ 25 mls/hr IV ONETIME ONE Stop: 05/21/16 15:59 Last Admin: 05/21/16 13:53 Dose: 25 mls/hr Pantoprazole Sodium (Protonix Iv) 40 mg IV Q12HR [facility] Last Admin: 05/21/16 08:59 Dose: 40 mg Pneumococcal Polyvalent Vaccine (Pneumovax 23) 0.5 ml IM .ONCE ONE Stop: 05/20/16 16:41 Potassium Chloride (Klor-Con M20) 20 meq PO Q3H [facility] Stop: 05/21/16 17:01 Last Admin: 05/21/16 18:18 Dose: 20 meq Quetiapine Fumarate (Seroquel) 50 mg PO ONETIME ONE Stop: 05/22/16 05:11 Last Admin: 05/22/16 05:32 Dose: Not Given Quetiapine Fumarate (Seroquel) 100 mg PO ONETIME ONE Stop: 05/22/16 05:22 Last Admin: 05/22/16 05:30 Dose: 100 mg Topiramate (Topamax) 25 mg PO ONETIME ONE Stop: 05/20/16 14:31 Last Admin: 05/20/16 16:30 Dose: 25 mg - Exam General: alert, oriented, cooperative, no acute distress HEENT: Pupils equal, Pupils reactive, EOMI, Mucous membr. moist/pink Neck: supple, trachea midline, no JVD, no thyromegaly Lungs: Clear to auscultation, Normal respiratory effort Cardiovascular: regular rate, regular rhythm Abdomen: bowel sounds present, soft, no tenderness, no distension (Male) Exam: Deferred Back Exam: normal inspection, decreased range of motion Extremities: no edema, normal pulses, no tenderness/swelling, no clubbing, no cyanosis, no calf tenderness Peripheral Pulses: 2+: dorsalis pedis (L), dorsalis pedis (R) Skin: warm, dry, intact Neurological: no new focal deficit Psy/Mental Status: alert, normal affect, normal mood - Problem List Review Problem List Initiated/Reviewed/Updated: Yes - My Orders Last 24 Hours: My Active Orders 05/22/16 13:00 cloNIDine [Catapres] 0.1 mg PO Q8H 05/23/16 05:11 BASIC METABOLIC PANEL,BMP [CHEM] AM CBC WITH AUTO DIFF [HEME] AM MAGNESIUM [CHEM] AM 05/23/16 09:00 QUEtiapine [SEROquel] 50 mg PO DAILY 05/24/16 05:11 BASIC METABOLIC PANEL,BMP [CHEM] AM MAGNESIUM [CHEM] AM 05/25/16 05:11 MAGNESIUM [CHEM] AM - Plan Plan:: Assessment: Hx/o Meth Abuse - He admits to meth use via ingestion but not IVDU (although he has needle track thompson on ante-cubital: 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, 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) - UDS: negative - Counseled on Substance Abuse - Consulted SA/Psych Chronic ETOH Abuse - CIWA protocol - He drinks heavily about 320 ml x 4-5 daily, he has an empty bottle of hard liquor outside his room - He supposed to shows up to court today but started drinking alcohol last night Resolved: Transaminitis - 2/2 ETOH Abuse - Likely improved E-Lytes Abnormality - K 3.0 and Mg 1.7 - Pharmacy to replete and monitor S/p ETOH Intoxication with Withdrawal Symptoms - RONNIE 0.41 - CIWA protocol: CIWA score is now low - He is on his way out the door when he got symptomatic and started having visual hallucinations - Ativan/Librium/Topamax - Hydralzine and IVP BB for HR/BP control - Ativan for Abortive Seizure and Withdrawal Symptoms - Restoril for Insomnia - Patient in tears and wants to get better - He is not opposed to going for chemical dependency rehab Plan: Patient remains clinically stable Continue current treatment: CIWA protocol, Ativan for Abortive Seizure and Withdrawal Symptoms, Restoril for Insomnia and PRN meds for Withdrawal Symptoms Aspiration/Seizure Precautions SW/CM d/c planning Patient will be involuntarily committed to [facility] Code Status: 1 Possible d/c in am LOS > 96 hrs pending placement to rehab placement
[2016-05-23] MEDS: cloNIDine 0.1 MG Tab PO SCH ×3 (05:33→21:17)
[2016-05-23] MEDS: QUEtiapine 25 MG Tab PO SCH (08:12)
[2016-05-23] MEDS: Pantoprazole 40 MG Tab.CR PO SCH ×2 (08:12→21:20)
[2016-05-23] MEDS: Topiramate 25 MG Tab PO SCH ×2 (08:12→21:18)
[2016-05-23] MEDS: chlordiazePOXIDE 25 MG Cap PO SCH ×4 (08:13→21:18)
[2016-05-23] MEDS: Enoxaparin 40 MG/0.4 ML Syringe SUBCUT SCH (08:13)
[2016-05-23] MEDS: QUEtiapine 100 MG Tab PO SCH (21:16)
[2016-05-23] MEDS: Multivitamins,Therapeutic Tab PO SCH (21:17)
[2016-05-23] MEDS: Folic Acid 1 MG Tab PO SCH (21:18)
[2016-05-23] MEDS: Thiamine 100 MG Tab PO SCH (21:20)
[2016-05-23] MEDS: HYDROmorphone 0.5 MG/0.5 ML Syringe IVPUSH PRN (21:31)
[2016-05-24] MEDS: cloNIDine 0.1 MG Tab PO SCH (05:12)
--- NOTE | 2016-05-24 07:30 | PCM.PN ---
<Lin Hernandez M - Last Filed: 05/24/16 07:26> - General Info Date of Service: 05/24/16 Admission Dx/Problem (Free Text): ETOH Intoxication with Withdrawal Functional Status: Reports: pain controlled, tolerating diet, ambulating, urinating. Denies: new symptoms - Review of Systems General: Reports: no symptoms HEENT: Reports: no symptoms Pulmonary: Reports: no symptoms Cardiovascular: Reports: no symptoms Gastrointestinal: Reports: No symptoms Genitourinary: Reports: no symptoms Musculoskeletal: Reports: no symptoms Skin: Reports: no symptoms Neurological: Reports: no symptoms Psychiatric: Reports: no symptoms, other (CIWA scores low) - Patient Data Vitals - most recent: Last Vital Signs Temp 98.4 F 05/24/16 05:10 Pulse 79 05/24/16 05:10 Resp 18 05/23/16 23:31 BP 102/73 05/24/16 05:12 Pulse Ox 99 05/24/16 05:10 Weight - most recent: 75.07 kg I&O - last 24 hours: Intake & Output 05/23/16 05/24/16 05/24/16 22:59 06:59 14:59 Intake Total 935 2450 Output Total 300 Balance 635 2450 Med Orders - Current: Current Medications Acetaminophen (Tylenol) 650 mg PO Q4H PRN PRN Reason: Pain (Mild 1-3)/fever Acetaminophen/Hydrocodone Bitart ([place] 325-5 Mg) 1 tab PO Q4H PRN PRN Reason: Pain (moderate 4-6) Last Admin: 05/22/16 18:34 Dose: 1 tab Albuterol/Ipratropium (Duoneb 3.0-0.5 Mg/3 Ml) 3 ml NEB Q4H PRN PRN Reason: Shortness Of Breath/wheezing Bisacodyl (Dulcolax) 5 mg PO DAILY PRN PRN Reason: Constipation Chlordiazepoxide HCl (Librium) 25 mg PO QID [facility] Last Admin: 05/23/16 21:18 Dose: 25 mg Clonidine HCl (Catapres) 0.1 mg PO Q8H [facility] Stop: 05/24/16 09:00 Last Admin: 05/24/16 05:12 Dose: Not Given Enoxaparin Sodium (Lovenox) 40 mg SUBCUT DAILY [facility] Last Admin: 05/23/16 08:13 Dose: 40 mg Folic Acid (Folic Acid) 1 mg PO BEDTIME [facility] Last Admin: 05/23/16 21:18 Dose: 1 mg Hydralazine HCl (Apresoline) 20 mg IVPUSH Q4H PRN PRN Reason: Hypertension Hydromorphone HCl (Dilaudid) 0.25 mg IVPUSH Q2H PRN PRN Reason: Pain (severe 7-10) Last Admin: 05/23/16 21:31 Dose: 0.25 mg Promethazine HCl 12.5 mg/ (Sodium Chloride) 50.5 mls @ 100 mls/hr IV Q6H PRN PRN Reason: Nausea/Vomiting Lorazepam (Ativan) 2 mg IVPUSH Q4H PRN PRN Reason: Seizures Last Admin: 05/21/16 07:42 Dose: 2 mg Lorazepam (Ativan) 0 mg IVPUSH Q4H PRN; Protocol PRN Reason: Withdrawal Symptoms Last Admin: 05/22/16 07:23 Dose: 2 mg Magnesium Sulfate (Pharmacy To Dose - Magnesium Replacement) 0 dose .XX ASDIRECTED PRN PRN Reason: RX DOSE Metoprolol Tartrate (Lopressor) 5 mg IVPUSH Q4H PRN PRN Reason: Tachycardia Last Admin: 05/20/16 22:05 Dose: 5 mg Multivitamins (Thera) 1 each PO BEDTIME [facility] Last Admin: 05/23/16 21:17 Dose: 1 each Ondansetron HCl (Zofran) 4 mg IV Q6H PRN PRN Reason: Nausea/Vomiting Pantoprazole Sodium (Protonix) 40 mg PO Q12HR [facility] Last Admin: 05/23/16 21:20 Dose: 40 mg Polyethylene Glycol (Miralax) 17 gm PO DAILY PRN PRN Reason: Constipation Potassium Chloride (Pharmacy To Dose - Potassium Replacement) 0 dose .XX ASDIRECTED PRN PRN Reason: RX DOSE Quetiapine Fumarate (Seroquel) 300 mg PO BEDTIME [facility] Last Admin: 05/23/16 21:16 Dose: 300 mg Quetiapine Fumarate (Seroquel) 50 mg PO DAILY [facility] Last Admin: 05/23/16 08:12 Dose: 50 mg Senna/Docusate Sodium (Senna Plus) 1 tab PO BID PRN PRN Reason: Constipation Sodium Chloride (Saline Flush) 10 ml FLUSH ASDIRECTED PRN PRN Reason: Keep Vein Open Last Admin: 05/20/16 07:34 Dose: 10 ml Temazepam (Restoril) 15 mg PO BEDTIME PRN PRN Reason: Sleep Last Admin: 05/20/16 17:13 Dose: 15 mg Thiamine HCl (Vitamin B-1) 100 mg PO BEDTIME [facility] Last Admin: 05/23/16 21:20 Dose: 100 mg Topiramate (Topamax) 25 mg PO BID [facility] Last Admin: 05/23/16 21:18 Dose: 25 mg Discontinued Medications Clonidine HCl (Catapres) 0.2 mg PO ONETIME ONE Stop: 05/22/16 05:13 Last Admin: 05/22/16 05:28 Dose: 0.2 mg Diphtheria/Tetanus/Acell Pertussis (Boostrix) 0.5 ml IM .ONCE ONE Stop: 05/20/16 16:41 Lactated Ringer's (Ringers, Lactated) 1,000 mls @ 1,000 mls/hr IV .BOLUS ONE Stop: 05/20/16 08:00 Last Admin: 05/20/16 07:04 Dose: 1,000 mls/hr Dextrose/Sodium Chloride (Dextrose 5%-1/2 Ns) 1,000 mls @ 125 mls/hr IV ASDIRECTED [facility] Last Admin: 05/21/16 04:10 Dose: 125 mls/hr Thiamine HCl 200 mg/ Sodium (Chloride) 102 mls @ 50 mls/hr IV ONETIME ONE Stop: 05/20/16 15:40 Last Admin: 05/20/16 17:18 Dose: 50 mls/hr Magnesium Sulfate 2 gm/ Premix 50 mls @ 25 mls/hr IV ONETIME ONE Stop: 05/21/16 15:59 Last Admin: 05/21/16 13:53 Dose: 25 mls/hr Pantoprazole Sodium (Protonix Iv) 40 mg IV Q12HR [facility] Last Admin: 05/21/16 08:59 Dose: 40 mg Pneumococcal Polyvalent Vaccine (Pneumovax 23) 0.5 ml IM .ONCE ONE Stop: 05/20/16 16:41 Potassium Chloride (Klor-Con M20) 20 meq PO Q3H [facility] Stop: 05/21/16 17:01 Last Admin: 05/21/16 18:18 Dose: 20 meq Quetiapine Fumarate (Seroquel) 50 mg PO ONETIME ONE Stop: 05/22/16 05:11 Last Admin: 05/22/16 05:32 Dose: Not Given Quetiapine Fumarate (Seroquel) 100 mg PO ONETIME ONE Stop: 05/22/16 05:22 Last Admin: 05/22/16 05:30 Dose: 100 mg Topiramate (Topamax) 25 mg PO ONETIME ONE Stop: 05/20/16 14:31 Last Admin: 05/20/16 16:30 Dose: 25 mg - Exam Quality Assessment: DVT prophylaxis General: alert, oriented, cooperative, no acute distress HEENT: Pupils equal, Pupils reactive, EOMI, Mucous membr. moist/pink Neck: supple Lungs: Clear to auscultation, Normal respiratory effort Cardiovascular: regular rate, regular rhythm Abdomen: bowel sounds present, soft, no tenderness (Male) Exam: Deferred Extremities: no edema, no calf tenderness Peripheral Pulses: 1+: dorsalis pedis (L), dorsalis pedis (R) Skin: warm, dry, intact Neurological: no new focal deficit Psy/Mental Status: alert, normal affect, normal mood - Problem List Review Problem List Initiated/Reviewed/Updated: Yes - My Orders Last 24 Hours: My Active Orders 05/24/16 07:24 CMP [COMPREHENSIVE METABOLIC PN,CMP] [CHEM] Routine - Plan Plan:: Assessment: Chronic ETOH Abuse - CIWA protocol - He drinks heavily about 320 ml x 4-5 daily, he has an empty bottle of hard liquor outside his room - He supposed to shows up to court today (day of admission) but started drinking alcohol last night Hx/o Meth Abuse - He admits to meth use via ingestion but not IVDU (although he has needle track thompson on anticubital: 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) - UDS: negative - Counseled on Substance Abuse - Consulted SA/Psych Resolved: Transaminitis - 2/2 ETOH Abuse - Likely improved--recheck LFT's today E-Lytes Abnormality - K 3.0 and Mg 1.7 - Pharmacy to replete and monitor S/p ETOH Intoxication with Withdrawal Symptoms - RONNIE 0.41 - CIWA protocol: CIWA score is now low - He is on his way out the door when he got symptomatic and started having visual hallucinations - Ativan/Librium/Topamax - Hydralzine and IVP BB for HR/BP control - Ativan for Abortive Seizure and Withdrawal Symptoms - Restoril for Insomnia - Patient in tears and wants to get better - He is not opposed to going for chemical dependency rehab Other: TSH is normal Plan: Patient remains clinically stable Continue current treatment: CIWA protocol, Ativan for Abortive Seizure and Withdrawal Symptoms, Restoril for Insomnia and PRN meds for Withdrawal Symptoms Aspiration/Seizure Precautions SW/CM d/c planning Patient will be involuntarily committed to [facility] Code Status: 1 Possible d/c today vs tomorrow pending bed availability at [facility] LOS > 96 hrs pending placement to rehab placement <Jayde Laws T - Last Filed: 05/24/16 20:17> - General Info Functional Status: Reports: pain controlled, tolerating diet, ambulating, urinating - Review of Systems General: Denies: fever, chills HEENT: Reports: no symptoms Pulmonary: Denies: shortness of breath Cardiovascular: Denies: chest pain Gastrointestinal: Denies: Abdominal pain, Nausea, Vomiting Genitourinary: Reports: no symptoms Musculoskeletal: Denies: neck pain Skin: Reports: no symptoms Neurological: Denies: confusion, difficulty walking, gait disturbance Psychiatric: Denies: depression, anxiety, agitation, hallucinations, suicidal ideation Systems Review Comment:: No overnight issues. He is doing relatively well. - Patient Data Vitals - most recent: Last Vital Signs Temp 36.9 C 05/24/16 18:30 Pulse 85 05/24/16 20:00 Resp 16 05/24/16 20:00 BP 124/86 05/24/16 20:00 Pulse Ox 99 05/24/16 20:00 I&O - last 24 hours: Intake & Output 05/24/16 05/24/16 05/24/16 06:59 14:59 22:59 Intake Total 2450 960 600 Output Total 2250 Balance 2450 960 -1650 Lab Results last 24 hrs: Laboratory Results - last 24 hr 05/24/16 05/24/16 Range/Units 06:14 06:14 Sodium 138 (136-145) mEq/L Potassium 3.4 L (3.5-5.1) mEq/L Chloride 105 (98-107) mEq/L Carbon Dioxide 20 L (21-32) mEq/L Anion Gap 16.4 H (5-15) BUN 18 (7-18) mg/dL Creatinine 1.0 (0.7-1.3) mg/dL Est Cr Clr Drug Dosing 95.95 mL/min Estimated GFR (MDRD) > 60 (>60) mL/min BUN/Creatinine Ratio 18.0 (14-18) Glucose 132 H (74-106) mg/dL Calcium 8.7 (8.5-10.1) mg/dL Magnesium 2.1 (1.8-2.4) mg/dl Total Bilirubin 0.4 (0.2-1.0) mg/dL AST 38 H (15-37) U/L ALT 75 H (16-63) U/L Alkaline Phosphatase 46 (46-116) U/L Total Protein 7.3 (6.4-8.2) g/dl Albumin 3.5 (3.4-5.0) g/dl Globulin 3.8 gm/dL Albumin/Globulin Ratio 0.9 L (1-2) Med Orders - Current: Current Medications Acetaminophen (Tylenol) 650 mg PO Q4H PRN PRN Reason: Pain (Mild 1-3)/fever Acetaminophen/Hydrocodone Bitart ([place] 325-5 Mg) 1 tab PO Q4H PRN PRN Reason: Pain (moderate 4-6) Last Admin: 05/24/16 09:11 Dose: 1 tab Albuterol/Ipratropium (Duoneb 3.0-0.5 Mg/3 Ml) 3 ml NEB Q4H PRN PRN Reason: Shortness Of Breath/wheezing Bisacodyl (Dulcolax) 5 mg PO DAILY PRN PRN Reason: Constipation Enoxaparin Sodium (Lovenox) 40 mg SUBCUT DAILY [facility] Last Admin: 05/24/16 08:15 Dose: 40 mg Folic Acid (Folic Acid) 1 mg PO BEDTIME [facility] Last Admin: 05/23/16 21:18 Dose: 1 mg Hydralazine HCl (Apresoline) 20 mg IVPUSH Q4H PRN PRN Reason: Hypertension Hydromorphone HCl (Dilaudid) 0.25 mg IVPUSH Q2H PRN PRN Reason: Pain (severe 7-10) Last Admin: 05/23/16 21:31 Dose: 0.25 mg Promethazine HCl 12.5 mg/ (Sodium Chloride) 50.5 mls @ 100 mls/hr IV Q6H PRN PRN Reason: Nausea/Vomiting Lorazepam (Ativan) 2 mg IVPUSH Q4H PRN PRN Reason: Seizures Last Admin: 05/21/16 07:42 Dose: 2 mg Lorazepam (Ativan) 0 mg IVPUSH Q4H PRN; Protocol PRN Reason: Withdrawal Symptoms Last Admin: 05/22/16 07:23 Dose: 2 mg Magnesium Sulfate (Pharmacy To Dose - Magnesium Replacement) 0 dose .XX ASDIRECTED PRN PRN Reason: RX DOSE Metoprolol Tartrate (Lopressor) 5 mg IVPUSH Q4H PRN PRN Reason: Tachycardia Last Admin: 05/20/16 22:05 Dose: 5 mg Multivitamins (Thera) 1 each PO BEDTIME [facility] Last Admin: 05/23/16 21:17 Dose: 1 each Ondansetron HCl (Zofran) 4 mg IV Q6H PRN PRN Reason: Nausea/Vomiting Pantoprazole Sodium (Protonix) 40 mg PO Q12HR [facility] Last Admin: 05/24/16 08:15 Dose: 40 mg Polyethylene Glycol (Miralax) 17 gm PO DAILY PRN PRN Reason: Constipation Potassium Chloride (Pharmacy To Dose - Potassium Replacement) 0 dose .XX ASDIRECTED PRN PRN Reason: RX DOSE Quetiapine Fumarate (Seroquel) 300 mg PO BEDTIME [facility] Last Admin: 05/23/16 21:16 Dose: 300 mg Quetiapine Fumarate (Seroquel) 50 mg PO DAILY [facility] Last Admin: 05/24/16 08:15 Dose: 50 mg Senna/Docusate Sodium (Senna Plus) 1 tab PO BID PRN PRN Reason: Constipation Sodium Chloride (Saline Flush) 10 ml FLUSH ASDIRECTED PRN PRN Reason: Keep Vein Open Last Admin: 05/20/16 07:34 Dose: 10 ml Temazepam (Restoril) 15 mg PO BEDTIME PRN PRN Reason: Sleep Last Admin: 05/20/16 17:13 Dose: 15 mg Thiamine HCl (Vitamin B-1) 100 mg PO BEDTIME [facility] Last Admin: 05/23/16 21:20 Dose: 100 mg Topiramate (Topamax) 25 mg PO BID [facility] Last Admin: 05/24/16 08:15 Dose: 25 mg Discontinued Medications Chlordiazepoxide HCl (Librium) 25 mg PO QID [facility] Last Admin: 05/24/16 08:15 Dose: 25 mg Clonidine HCl (Catapres) 0.2 mg PO ONETIME ONE Stop: 05/22/16 05:13 Last Admin: 05/22/16 05:28 Dose: 0.2 mg Clonidine HCl (Catapres) 0.1 mg PO Q8H [facility] Stop: 05/24/16 09:00 Last Admin: 05/24/16 05:12 Dose: Not Given Diphtheria/Tetanus/Acell Pertussis (Boostrix) 0.5 ml IM .ONCE ONE Stop: 05/20/16 16:41 Lactated Ringer's (Ringers, Lactated) 1,000 mls @ 1,000 mls/hr IV .BOLUS ONE Stop: 05/20/16 08:00 Last Admin: 05/20/16 07:04 Dose: 1,000 mls/hr Dextrose/Sodium Chloride (Dextrose 5%-1/2 Ns) 1,000 mls @ 125 mls/hr IV ASDIRECTED [facility] Last Admin: 05/21/16 04:10 Dose: 125 mls/hr Thiamine HCl 200 mg/ Sodium (Chloride) 102 mls @ 50 mls/hr IV ONETIME ONE Stop: 05/20/16 15:40 Last Admin: 05/20/16 17:18 Dose: 50 mls/hr Magnesium Sulfate 2 gm/ Premix 50 mls @ 25 mls/hr IV ONETIME ONE Stop: 05/21/16 15:59 Last Admin: 05/21/16 13:53 Dose: 25 mls/hr Pantoprazole Sodium (Protonix Iv) 40 mg IV Q12HR [facility] Last Admin: 05/21/16 08:59 Dose: 40 mg Pneumococcal Polyvalent Vaccine (Pneumovax 23) 0.5 ml IM .ONCE ONE Stop: 05/20/16 16:41 Potassium Chloride (Klor-Con M20) 20 meq PO Q3H [facility] Stop: 05/21/16 17:01 Last Admin: 05/21/16 18:18 Dose: 20 meq Potassium Chloride (Klor-Con M20) 40 meq PO ONETIME ONE Stop: 05/24/16 09:01 Last Admin: 05/24/16 09:11 Dose: 40 meq Quetiapine Fumarate (Seroquel) 50 mg PO ONETIME ONE Stop: 05/22/16 05:11 Last Admin: 05/22/16 05:32 Dose: Not Given Quetiapine Fumarate (Seroquel) 100 mg PO ONETIME ONE Stop: 05/22/16 05:22 Last Admin: 05/22/16 05:30 Dose: 100 mg Topiramate (Topamax) 25 mg PO ONETIME ONE Stop: 05/20/16 14:31 Last Admin: 05/20/16 16:30 Dose: 25 mg - Exam Quality Assessment: DVT prophylaxis General: alert, oriented, cooperative, no acute distress HEENT: Pupils equal, Pupils reactive, EOMI, Mucous membr. moist/pink Neck: supple, no JVD, no thyromegaly Lungs: Clear to auscultation, Normal respiratory effort Cardiovascular: regular rate, regular rhythm Abdomen: bowel sounds present, soft, no tenderness, no distension (Male) Exam: Deferred Back Exam: normal inspection, decreased range of motion Extremities: no edema, normal pulses, no calf tenderness, other (blisters on left hand) Peripheral Pulses: 3+: posterior tibial (L), posterior tibial (R), dorsalis pedis (L) Skin: warm, dry, intact Neurological: no new focal deficit Psy/Mental Status: alert, normal affect, normal mood - Problem List Review Problem List Initiated/Reviewed/Updated: Yes - My Orders Last 24 Hours: My Active Orders 05/25/16 05:11 MAGNESIUM [CHEM] AM - Plan Plan:: He remains clinically stable Pending placement to [facility]
[2016-05-24] MEDS: Topiramate 25 MG Tab PO SCH ×2 (08:15→21:46)
[2016-05-24] MEDS: QUEtiapine 25 MG Tab PO SCH (08:15)
[2016-05-24] MEDS: Pantoprazole 40 MG Tab.CR PO SCH ×2 (08:15→21:44)
[2016-05-24] MEDS: chlordiazePOXIDE 25 MG Cap PO SCH (08:15)
[2016-05-24] MEDS: Enoxaparin 40 MG/0.4 ML Syringe SUBCUT SCH (08:15)
[2016-05-24] MEDS ORDERED: Potassium Chloride 20 MEQ Tab.ER PO ONE (09:00)
[2016-05-24] MEDS: Acetaminophen/HYDROcodone 325-5 MG Tab PO PRN (09:11)
[2016-05-24] MEDS: QUEtiapine 100 MG Tab PO SCH (21:42)
[2016-05-24] MEDS: Multivitamins,Therapeutic Tab PO SCH (21:44)
[2016-05-24] MEDS: Folic Acid 1 MG Tab PO SCH (21:44)
[2016-05-24] MEDS: Thiamine 100 MG Tab PO SCH (21:44)
[2016-05-24] MEDS: HYDROmorphone 0.5 MG/0.5 ML Syringe IVPUSH PRN (21:46)
[2016-05-25] MEDS: Acetaminophen/HYDROcodone 325-5 MG Tab PO PRN ×4 (03:49→21:30)
[2016-05-25] MEDS: Enoxaparin 40 MG/0.4 ML Syringe SUBCUT SCH (08:17)
[2016-05-25] MEDS: Pantoprazole 40 MG Tab.CR PO SCH ×2 (08:17→21:34)
[2016-05-25] MEDS: QUEtiapine 25 MG Tab PO SCH (08:17)
[2016-05-25] MEDS: Topiramate 25 MG Tab PO SCH ×2 (08:17→21:35)
[2016-05-25] MEDS: LORazepam 2 MG/ML MDV IVPUSH PRN ×3 (11:44→21:27)
[2016-05-25] MEDS ORDERED: Ibuprofen 600 MG Tab PO PRN (12:41)
--- NOTE | 2016-05-25 12:59 | PCM.PN ---
- General Info Date of Service: 05/25/16 Admission Dx/Problem (Free Text): ETOH Intoxication with Withdrawal Patient is seen just after noon today after having an episode of "jitters", nausea, shakiness, racing heartbeats. He summoned the nurse requesting pain medication. Nursing called me as there are no narcotic pain medications ordered. CIWAA score was 14 at the time. He was given ativan per protocol. Upon my eval and discussion with patient after that he states he feels "so much calmer". I review with him that he is having withdrawl symptoms and he agrees. He states he is anxious to get discharged to a rehab facility somewhere, hopefully today and states "I want to go somewhere where I know that I have no option of leaving", "If I know I can leave, I will, I will run and not go back because I have before", "I need to go for at least 30 days without any other options". He is then hopeful he can do outpatient treatment after an inpatient stay. Otherwise he is doing well, good appetite, sleeping fine. Functional Status: Reports: pain controlled, tolerating diet, ambulating, urinating. Denies: new symptoms - Review of Systems General: Reports: No Symptoms HEENT: Reports: no symptoms Pulmonary: Reports: no symptoms Cardiovascular: Reports: No Symptoms Gastrointestinal: Reports: No symptoms Genitourinary: Reports: no symptoms Musculoskeletal: Reports: no symptoms Skin: Reports: no symptoms Neurological: Reports: No Symptoms Psychiatric: Reports: anxiety, agitation - Patient Data Vitals - most recent: Last Vital Signs Temp 98.5 F 05/25/16 12:00 Pulse 91 05/25/16 12:24 Resp 18 05/25/16 12:24 BP 123/78 05/25/16 12:24 Pulse Ox 98 05/25/16 12:24 Weight - most recent: 168 lb 1.6 oz I&O - last 24 hours: Intake & Output 05/24/16 05/25/16 05/25/16 22:59 06:59 14:59 Intake Total 1200 1500 240 Output Total 2250 1350 Balance -1050 150 240 Lab Results last 24 hrs: Laboratory Results - last 24 hr 05/25/16 05/25/16 Range/Units 05:42 05:42 Sodium 139 (136-145) mEq/L Potassium 4.2 (3.5-5.1) mEq/L Chloride 105 (98-107) mEq/L Carbon Dioxide 24 (21-32) mEq/L Anion Gap 14.2 (5-15) BUN 17 (7-18) mg/dL Creatinine 1.0 (0.7-1.3) mg/dL Est Cr Clr Drug Dosing 95.95 mL/min Estimated GFR (MDRD) > 60 (>60) mL/min BUN/Creatinine Ratio 17.0 (14-18) Glucose 101 (74-106) mg/dL Calcium 8.9 (8.5-10.1) mg/dL Magnesium 1.9 (1.8-2.4) mg/dl Med Orders - Current: Current Medications Acetaminophen (Tylenol) 650 mg PO Q4H PRN PRN Reason: Pain (Mild 1-3)/fever Albuterol/Ipratropium (Duoneb 3.0-0.5 Mg/3 Ml) 3 ml NEB Q4H PRN PRN Reason: Shortness Of Breath/wheezing Bisacodyl (Dulcolax) 5 mg PO DAILY PRN PRN Reason: Constipation Enoxaparin Sodium (Lovenox) 40 mg SUBCUT DAILY [facility] Last Admin: 05/25/16 08:17 Dose: 40 mg Folic Acid (Folic Acid) 1 mg PO BEDTIME [facility] Last Admin: 05/24/16 21:44 Dose: 1 mg Hydralazine HCl (Apresoline) 20 mg IVPUSH Q4H PRN PRN Reason: Hypertension Promethazine HCl 12.5 mg/ (Sodium Chloride) 50.5 mls @ 100 mls/hr IV Q6H PRN PRN Reason: Nausea/Vomiting Ibuprofen (Motrin) 600 mg PO Q6H PRN PRN Reason: Pain Lorazepam (Ativan) 2 mg IVPUSH Q4H PRN PRN Reason: Seizures Last Admin: 05/21/16 07:42 Dose: 2 mg Lorazepam (Ativan) 0 mg IVPUSH Q4H PRN; Protocol PRN Reason: Withdrawal Symptoms Last Admin: 05/25/16 11:44 Dose: 1 mg Magnesium Sulfate (Pharmacy To Dose - Magnesium Replacement) 0 dose .XX ASDIRECTED PRN PRN Reason: RX DOSE Metoprolol Tartrate (Lopressor) 5 mg IVPUSH Q4H PRN PRN Reason: Tachycardia Last Admin: 05/20/16 22:05 Dose: 5 mg Multivitamins (Thera) 1 each PO BEDTIME [facility] Last Admin: 05/24/16 21:44 Dose: 1 each Ondansetron HCl (Zofran) 4 mg IV Q6H PRN PRN Reason: Nausea/Vomiting Pantoprazole Sodium (Protonix) 40 mg PO Q12HR [facility] Last Admin: 05/25/16 08:17 Dose: 40 mg Polyethylene Glycol (Miralax) 17 gm PO DAILY PRN PRN Reason: Constipation Potassium Chloride (Pharmacy To Dose - Potassium Replacement) 0 dose .XX ASDIRECTED PRN PRN Reason: RX DOSE Quetiapine Fumarate (Seroquel) 300 mg PO BEDTIME [facility] Last Admin: 05/24/16 21:42 Dose: 300 mg Quetiapine Fumarate (Seroquel) 50 mg PO DAILY [facility] Last Admin: 05/25/16 08:17 Dose: 50 mg Senna/Docusate Sodium (Senna Plus) 1 tab PO BID PRN PRN Reason: Constipation Sodium Chloride (Saline Flush) 10 ml FLUSH ASDIRECTED PRN PRN Reason: Keep Vein Open Last Admin: 05/20/16 07:34 Dose: 10 ml Temazepam (Restoril) 15 mg PO BEDTIME PRN PRN Reason: Sleep Last Admin: 05/20/16 17:13 Dose: 15 mg Thiamine HCl (Vitamin B-1) 100 mg PO BEDTIME [facility] Last Admin: 05/24/16 21:44 Dose: 100 mg Topiramate (Topamax) 25 mg PO BID [facility] Last Admin: 05/25/16 08:17 Dose: 25 mg Discontinued Medications Acetaminophen/Hydrocodone Bitart ([place] 325-5 Mg) 1 tab PO Q4H PRN PRN Reason: Pain (moderate 4-6) Last Admin: 05/25/16 08:16 Dose: 1 tab Chlordiazepoxide HCl (Librium) 25 mg PO QID [facility] Last Admin: 05/24/16 08:15 Dose: 25 mg Clonidine HCl (Catapres) 0.2 mg PO ONETIME ONE Stop: 05/22/16 05:13 Last Admin: 05/22/16 05:28 Dose: 0.2 mg Clonidine HCl (Catapres) 0.1 mg PO Q8H [facility] Stop: 05/24/16 09:00 Last Admin: 05/24/16 05:12 Dose: Not Given Diphtheria/Tetanus/Acell Pertussis (Boostrix) 0.5 ml IM .ONCE ONE Stop: 05/20/16 16:41 Hydromorphone HCl (Dilaudid) 0.25 mg IVPUSH Q2H PRN PRN Reason: Pain (severe 7-10) Last Admin: 05/24/16 21:46 Dose: 0.25 mg Lactated Ringer's (Ringers, Lactated) 1,000 mls @ 1,000 mls/hr IV .BOLUS ONE Stop: 05/20/16 08:00 Last Admin: 05/20/16 07:04 Dose: 1,000 mls/hr Dextrose/Sodium Chloride (Dextrose 5%-1/2 Ns) 1,000 mls @ 125 mls/hr IV ASDIRECTED [facility] Last Admin: 05/21/16 04:10 Dose: 125 mls/hr Thiamine HCl 200 mg/ Sodium (Chloride) 102 mls @ 50 mls/hr IV ONETIME ONE Stop: 05/20/16 15:40 Last Admin: 05/20/16 17:18 Dose: 50 mls/hr Magnesium Sulfate 2 gm/ Premix 50 mls @ 25 mls/hr IV ONETIME ONE Stop: 05/21/16 15:59 Last Admin: 05/21/16 13:53 Dose: 25 mls/hr Pantoprazole Sodium (Protonix Iv) 40 mg IV Q12HR [facility] Last Admin: 05/21/16 08:59 Dose: 40 mg Pneumococcal Polyvalent Vaccine (Pneumovax 23) 0.5 ml IM .ONCE ONE Stop: 05/20/16 16:41 Potassium Chloride (Klor-Con M20) 20 meq PO Q3H [facility] Stop: 05/21/16 17:01 Last Admin: 05/21/16 18:18 Dose: 20 meq Potassium Chloride (Klor-Con M20) 40 meq PO ONETIME ONE Stop: 05/24/16 09:01 Last Admin: 05/24/16 09:11 Dose: 40 meq Quetiapine Fumarate (Seroquel) 50 mg PO ONETIME ONE Stop: 05/22/16 05:11 Last Admin: 05/22/16 05:32 Dose: Not Given Quetiapine Fumarate (Seroquel) 100 mg PO ONETIME ONE Stop: 05/22/16 05:22 Last Admin: 05/22/16 05:30 Dose: 100 mg Topiramate (Topamax) 25 mg PO ONETIME ONE Stop: 05/20/16 14:31 Last Admin: 05/20/16 16:30 Dose: 25 mg - Exam Quality Assessment: DVT prophylaxis General: alert, oriented, cooperative, no acute distress HEENT: Pupils equal, Pupils reactive, EOMI, Mucous membr. moist/pink Neck: supple Lungs: Clear to auscultation, Normal respiratory effort Cardiovascular: Regular Rate, Regular Rhythm Abdomen: bowel sounds present, soft (Male) Exam: Deferred Extremities: no edema Neurological: no new focal deficit Psy/Mental Status: alert, normal affect, normal mood, other (calm at time of my exam) - Problem List & Annotations (1) Alcohol abuse SNOMED Code(s): 33416465 Code(s): F10.10 - ALCOHOL ABUSE, UNCOMPLICATED Status: Chronic Priority: High Current Visit: Yes (2) Alcohol intoxication SNOMED Code(s): 25923317 Code(s): F10.129 - ALCOHOL ABUSE WITH INTOXICATION, UNSPECIFIED Status: Acute Priority: High Current Visit: Yes Qualifiers: Complication of substance-induced condition: uncomplicated Qualified Code(s ): F10.120 - Alcohol abuse with intoxication, uncomplicated (3) Drug abuse SNOMED Code(s): 77117455 Code(s): F19.10 - OTHER PSYCHOACTIVE SUBSTANCE ABUSE, UNCOMPLICATED Status : Chronic Priority: High Current Visit: Yes (4) Methamphetamine abuse SNOMED Code(s): 810288759 Code(s): F15.10 - OTHER STIMULANT ABUSE, UNCOMPLICATED Status: Acute Priority: Medium Current Visit: No - Problem List Review Problem List Initiated/Reviewed/Updated: Yes - My Orders Last 24 Hours: My Active Orders 05/25/16 12:41 Ibuprofen [Motrin] 600 mg PO Q6H PRN - Plan Plan:: Assessment: Chronic ETOH use/abuse - [facility] protocol-- up to 14 today - He drinks heavily about 320 ml x 4-5 daily, he has an empty bottle of hard liquor outside his room - He supposed to shows up to court today (day of admission) but started drinking alcohol last night - Failed multiple treatment centers/programs in the past - Requesting inpatient rehab "where I know I am not able to leave", "I know I will run". - SA consult, ER Doctor and Hospitalist service all recommend inpatient rehab /commitment with [facility]. Hx/o Meth Abuse - He admits to meth use via ingestion but not IVDU (although he has needle track thompson on anticubital: 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) - UDS: negative - Counseled on Substance Abuse - Consulted SA/Psych Resolved: Transaminitis - 2/2 ETOH Abuse - Likely improved--recheck LFT's - improved E-Lytes Abnormality - K 3.0 and Mg 1.7-- normal now - Pharmacy to replete and monitor S/p ETOH Intoxication with Withdrawal Symptoms - RONNIE 0.41 - CIWA protocol: CIWA score is now low - He is on his way out the door when he got symptomatic and started having visual hallucinations - Ativan/Librium/Topamax - Hydralzine and IVP BB for HR/BP control - Ativan for Abortive Seizure and Withdrawal Symptoms - Restoril for Insomnia - Patient in tears and wants to get better - He is not opposed to going for chemical dependency rehab Other: TSH is normal Plan: Patient remains clinically stable Continue current treatment: CIWA protocol, Ativan for Abortive Seizure and Withdrawal Symptoms, Restoril for Insomnia and PRN meds for Withdrawal Symptoms Aspiration/Seizure Precautions SW/CM d/c planning Patient will be involuntarily committed to [facility] Code Status: 1 Possible d/c today vs tomorrow pending bed availability at [facility] LOS > 96 hrs pending placement to rehab placement
[2016-05-25] MEDS: Thiamine 100 MG Tab PO SCH (21:29)
[2016-05-25] MEDS: Multivitamins,Therapeutic Tab PO SCH (21:30)
[2016-05-25] MEDS: Folic Acid 1 MG Tab PO SCH (21:30)
[2016-05-25] MEDS: QUEtiapine 100 MG Tab PO SCH (21:34)
[2016-05-26] MEDS: QUEtiapine 25 MG Tab PO SCH (09:10)
[2016-05-26] MEDS: Pantoprazole 40 MG Tab.CR PO SCH ×2 (09:11→20:44)
[2016-05-26] MEDS: Topiramate 25 MG Tab PO SCH ×2 (09:11→20:44)
[2016-05-26] MEDS: Acetaminophen/HYDROcodone 325-5 MG Tab PO PRN ×3 (09:11→20:54)
[2016-05-26] MEDS: Enoxaparin 40 MG/0.4 ML Syringe SUBCUT SCH (09:12)
--- NOTE | 2016-05-26 12:47 | PCM.PN ---
- General Info Date of Service: 05/26/16 Admission Dx/Problem (Free Text): ETOH Intoxication with Withdrawal Flako is seen this morning. Resting comfortably. No further withdrawl symptoms since yesterday afternoon. He again shares with me that he is anxious to go to "inpatient" rehab where "I know I can get the help I need". VSS. Labs stable. No other concerns, no concerns from nursing. Functional Status: Reports: pain controlled, tolerating diet, ambulating, urinating. Denies: new symptoms - Review of Systems General: Reports: No Symptoms HEENT: Reports: no symptoms Pulmonary: Reports: no symptoms Cardiovascular: Reports: No Symptoms Gastrointestinal: Reports: No symptoms Genitourinary: Reports: no symptoms Musculoskeletal: Reports: no symptoms, other (generalized joint pain, intermittent) Skin: Reports: no symptoms Neurological: Reports: No Symptoms Psychiatric: Reports: no symptoms - Patient Data Vitals - most recent: Last Vital Signs Temp 98.1 F 05/26/16 09:21 Pulse 87 05/26/16 09:21 Resp 18 05/26/16 09:21 BP 120/88 05/26/16 09:21 Pulse Ox 97 05/26/16 09:21 Weight - most recent: 164 lb 7 oz I&O - last 24 hours: Intake & Output 05/25/16 05/26/16 05/26/16 22:59 06:59 14:59 Intake Total 720 400 480 Balance 720 400 480 Med Orders - Current: Current Medications Acetaminophen (Tylenol) 650 mg PO Q4H PRN PRN Reason: Pain (Mild 1-3)/fever Acetaminophen/Hydrocodone Bitart ([place] 325-5 Mg) 1 tab PO Q4H PRN PRN Reason: Pain (mild 1-3) Last Admin: 05/26/16 09:11 Dose: 1 tab Albuterol/Ipratropium (Duoneb 3.0-0.5 Mg/3 Ml) 3 ml NEB Q4H PRN PRN Reason: Shortness Of Breath/wheezing Bisacodyl (Dulcolax) 5 mg PO DAILY PRN PRN Reason: Constipation Enoxaparin Sodium (Lovenox) 40 mg SUBCUT DAILY [facility] Last Admin: 05/26/16 09:12 Dose: 40 mg Folic Acid (Folic Acid) 1 mg PO BEDTIME [facility] Last Admin: 05/25/16 21:30 Dose: 1 mg Hydralazine HCl (Apresoline) 20 mg IVPUSH Q4H PRN PRN Reason: Hypertension Promethazine HCl 12.5 mg/ (Sodium Chloride) 50.5 mls @ 100 mls/hr IV Q6H PRN PRN Reason: Nausea/Vomiting Ibuprofen (Motrin) 600 mg PO Q6H PRN PRN Reason: Pain Lorazepam (Ativan) 2 mg IVPUSH Q4H PRN PRN Reason: Seizures Last Admin: 05/25/16 14:16 Dose: 1 mg Lorazepam (Ativan) 0 mg IVPUSH Q4H PRN; Protocol PRN Reason: Withdrawal Symptoms Last Admin: 05/25/16 21:27 Dose: 1 mg Magnesium Sulfate (Pharmacy To Dose - Magnesium Replacement) 0 dose .XX ASDIRECTED PRN PRN Reason: RX DOSE Metoprolol Tartrate (Lopressor) 5 mg IVPUSH Q4H PRN PRN Reason: Tachycardia Last Admin: 05/20/16 22:05 Dose: 5 mg Multivitamins (Thera) 1 each PO BEDTIME [facility] Last Admin: 05/25/16 21:30 Dose: 1 each Ondansetron HCl (Zofran) 4 mg IV Q6H PRN PRN Reason: Nausea/Vomiting Pantoprazole Sodium (Protonix) 40 mg PO Q12HR [facility] Last Admin: 05/26/16 09:11 Dose: 40 mg Polyethylene Glycol (Miralax) 17 gm PO DAILY PRN PRN Reason: Constipation Potassium Chloride (Pharmacy To Dose - Potassium Replacement) 0 dose .XX ASDIRECTED PRN PRN Reason: RX DOSE Quetiapine Fumarate (Seroquel) 300 mg PO BEDTIME [facility] Last Admin: 05/25/16 21:34 Dose: 300 mg Quetiapine Fumarate (Seroquel) 50 mg PO DAILY [facility] Last Admin: 05/26/16 09:10 Dose: 50 mg Senna/Docusate Sodium (Senna Plus) 1 tab PO BID PRN PRN Reason: Constipation Sodium Chloride (Saline Flush) 10 ml FLUSH ASDIRECTED PRN PRN Reason: Keep Vein Open Last Admin: 05/20/16 07:34 Dose: 10 ml Temazepam (Restoril) 15 mg PO BEDTIME PRN PRN Reason: Sleep Last Admin: 05/20/16 17:13 Dose: 15 mg Thiamine HCl (Vitamin B-1) 100 mg PO BEDTIME [facility] Last Admin: 05/25/16 21:29 Dose: 100 mg Topiramate (Topamax) 25 mg PO BID [facility] Last Admin: 05/26/16 09:11 Dose: 25 mg Discontinued Medications Acetaminophen/Hydrocodone Bitart ([place] 325-5 Mg) 1 tab PO Q4H PRN PRN Reason: Pain (moderate 4-6) Last Admin: 05/25/16 08:16 Dose: 1 tab Chlordiazepoxide HCl (Librium) 25 mg PO QID [facility] Last Admin: 05/24/16 08:15 Dose: 25 mg Clonidine HCl (Catapres) 0.2 mg PO ONETIME ONE Stop: 05/22/16 05:13 Last Admin: 05/22/16 05:28 Dose: 0.2 mg Clonidine HCl (Catapres) 0.1 mg PO Q8H [facility] Stop: 05/24/16 09:00 Last Admin: 05/24/16 05:12 Dose: Not Given Diphtheria/Tetanus/Acell Pertussis (Boostrix) 0.5 ml IM .ONCE ONE Stop: 05/20/16 16:41 Hydromorphone HCl (Dilaudid) 0.25 mg IVPUSH Q2H PRN PRN Reason: Pain (severe 7-10) Last Admin: 05/24/16 21:46 Dose: 0.25 mg Lactated Ringer's (Ringers, Lactated) 1,000 mls @ 1,000 mls/hr IV .BOLUS ONE Stop: 05/20/16 08:00 Last Admin: 05/20/16 07:04 Dose: 1,000 mls/hr Dextrose/Sodium Chloride (Dextrose 5%-1/2 Ns) 1,000 mls @ 125 mls/hr IV ASDIRECTED [facility] Last Admin: 05/21/16 04:10 Dose: 125 mls/hr Thiamine HCl 200 mg/ Sodium (Chloride) 102 mls @ 50 mls/hr IV ONETIME ONE Stop: 05/20/16 15:40 Last Admin: 05/20/16 17:18 Dose: 50 mls/hr Magnesium Sulfate 2 gm/ Premix 50 mls @ 25 mls/hr IV ONETIME ONE Stop: 05/21/16 15:59 Last Admin: 05/21/16 13:53 Dose: 25 mls/hr Pantoprazole Sodium (Protonix Iv) 40 mg IV Q12HR [facility] Last Admin: 05/21/16 08:59 Dose: 40 mg Pneumococcal Polyvalent Vaccine (Pneumovax 23) 0.5 ml IM .ONCE ONE Stop: 05/20/16 16:41 Potassium Chloride (Klor-Con M20) 20 meq PO Q3H [facility] Stop: 05/21/16 17:01 Last Admin: 05/21/16 18:18 Dose: 20 meq Potassium Chloride (Klor-Con M20) 40 meq PO ONETIME ONE Stop: 05/24/16 09:01 Last Admin: 05/24/16 09:11 Dose: 40 meq Quetiapine Fumarate (Seroquel) 50 mg PO ONETIME ONE Stop: 05/22/16 05:11 Last Admin: 05/22/16 05:32 Dose: Not Given Quetiapine Fumarate (Seroquel) 100 mg PO ONETIME ONE Stop: 05/22/16 05:22 Last Admin: 05/22/16 05:30 Dose: 100 mg Topiramate (Topamax) 25 mg PO ONETIME ONE Stop: 05/20/16 14:31 Last Admin: 05/20/16 16:30 Dose: 25 mg - Exam Quality Assessment: DVT prophylaxis General: alert, oriented, cooperative, no acute distress, other (pleasant and talkative today) HEENT: Pupils equal, Pupils reactive, EOMI, Mucous membr. moist/pink Neck: supple Lungs: Clear to auscultation, Normal respiratory effort Cardiovascular: Regular Rate, Regular Rhythm Abdomen: bowel sounds present, soft, no tenderness (Male) Exam: Deferred Extremities: no edema Neurological: no new focal deficit Psy/Mental Status: alert, normal affect, normal mood - Problem List & Annotations (1) Alcohol abuse SNOMED Code(s): 68155592 Code(s): F10.10 - ALCOHOL ABUSE, UNCOMPLICATED Status: Chronic Priority: High Current Visit: Yes (2) Alcohol intoxication SNOMED Code(s): 84745675 Code(s): F10.129 - ALCOHOL ABUSE WITH INTOXICATION, UNSPECIFIED Status: Acute Priority: High Current Visit: Yes Qualifiers: Complication of substance-induced condition: uncomplicated Qualified Code(s ): F10.120 - Alcohol abuse with intoxication, uncomplicated (3) Drug abuse SNOMED Code(s): 27719489 Code(s): F19.10 - OTHER PSYCHOACTIVE SUBSTANCE ABUSE, UNCOMPLICATED Status : Chronic Priority: High Current Visit: Yes (4) Methamphetamine abuse SNOMED Code(s): 304282912 Code(s): F15.10 - OTHER STIMULANT ABUSE, UNCOMPLICATED Status: Acute Priority: Medium Current Visit: No - Problem List Review Problem List Initiated/Reviewed/Updated: Yes - My Orders Last 24 Hours: My Active Orders 05/25/16 12:41 Ibuprofen [Motrin] 600 mg PO Q6H PRN - Plan Plan:: Assessment: Chronic ETOH use/abuse - CIWA protocol-- up to 14 yesterday, better today - He drinks heavily about 320 ml x 4-5 daily, he has an empty bottle of hard liquor outside his room - He supposed to shows up to court today (day of admission) but started drinking alcohol last night - Failed multiple treatment centers/programs in the past - Requesting inpatient rehab "where I know I am not able to leave", "I know I will run", as he has done so in the past. - LAC consult, ER Doctor, Psychiatry and Hospitalist service all recommend inpatient rehab/commitment with [facility]. Hx/o Meth Abuse - He admits to meth use via ingestion but not IVDU (although he has needle track thompson on anticubital: 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) - UDS: negative - Counseled on Substance Abuse - Consulted SA/Psych Resolved: Transaminitis - 2/2 ETOH Abuse - Likely improved--recheck LFT's - improved E-Lytes Abnormality - K 3.0 and Mg 1.7-- normal now - Pharmacy to replete and monitor S/p ETOH Intoxication with Withdrawal Symptoms - RONNIE 0.41 - CIWA protocol: CIWA score is now low - He is on his way out the door when he got symptomatic and started having visual hallucinations - Ativan/Librium/Topamax - Hydralzine and IVP BB for HR/BP control - Ativan for Abortive Seizure and Withdrawal Symptoms - Restoril for Insomnia - Patient in tears and wants to get better - He is not opposed to going for chemical dependency rehab Other: TSH is normal Plan: Patient remains clinically stable Continue current treatment: CIWA protocol, Ativan for Abortive Seizure and Withdrawal Symptoms, Restoril for Insomnia and PRN meds for Withdrawal Symptoms Aspiration/Seizure Precautions SW/CM d/c planning Code Status: 1 Possible d/c today vs tomorrow pending placement for inpatient rehab/commitment LOS > 96 hrs pending placement to rehab placement
[2016-05-26] MEDS: LORazepam 2 MG/ML MDV IVPUSH PRN ×2 (13:28→19:35)
[2016-05-26] MEDS: Folic Acid 1 MG Tab PO SCH (20:43)
[2016-05-26] MEDS: Multivitamins,Therapeutic Tab PO SCH (20:44)
[2016-05-26] MEDS: Thiamine 100 MG Tab PO SCH (20:44)
[2016-05-26] MEDS: QUEtiapine 100 MG Tab PO SCH (20:53)
[2016-05-27] MEDS: Acetaminophen/HYDROcodone 325-5 MG Tab PO PRN ×3 (05:13→13:14)
[2016-05-27] MEDS: Sodium Chloride 0.9% 10 ML Syringe FLUSH PRN (05:15)
[2016-05-27] MEDS: LORazepam 2 MG/ML MDV IVPUSH PRN ×2 (07:00→10:26)
--- NOTE | 2016-05-27 07:33 | CONS ---
CONSULTING PHYSICIAN: Remington Warner LAC DATE OF CONSULTATION: 05/26/2016 TIME: 1556 hours. ADDENDUM: There was a meeting today with representatives from [facility], Dulce Mcgowan LCSW; Unit Manager [employer] Tunde Mtz ; and Dr. Laws regarding the patient's safe discharge plan. I was informed that the patient ASAM placement criteria now meets a level 3.7, as the patient has reported concern to staff that he needs a controlled environment and would be unable to follow through with substance abuse treatment on his own volition. The patient's recommended placement criteria will be amended to a level 3.7, medically monitored intensive inpatient treatment at the by executed petition for involuntary commitment. NIURKA /[id number]
[2016-05-27] MEDS: Topiramate 25 MG Tab PO SCH (09:47)
[2016-05-27] MEDS: Enoxaparin 40 MG/0.4 ML Syringe SUBCUT SCH (09:47)
[2016-05-27] MEDS: Pantoprazole 40 MG Tab.CR PO SCH (09:47)
[2016-05-27] MEDS: QUEtiapine 25 MG Tab PO SCH (09:47)
--- NOTE | 2016-05-27 10:16 | PCM.DCSUM1 ---
Discharge Summary - Hospital Course Free Text/Narrative:: This is a 41 yo white male with past medical hx/o Chronic ETOH Abuse and Substance Abuse who was brought in by local taxi cab this morning very cold and agitated. [place]. Patient was initially seen here in ED about 2 weeks ago for meth intoxication. He was found by local police wondering naked out in the street anxious and agitated. Per secondary sources, he supposed to show up to court today but was so stressed out about it so started drinking heavily overnight with hard liquor. He is worried about the police. His initial work up in ED shows a CBC remarkable for WBC 11.54 and Neutrophils 81.6%. His chemistry is remarkable for na 148, Cl 108, AG 21.6, BUN 19 BS 127, Ca 7.7, AST 168, and ALT 126. UA is still pending and his RONNIE is 0.41. Patient received initial treatment in ED before he was discharged. On his way out the door, he got more symptomatic started "seeing things" (snakes). Therefore he was referred to me for ETOH Detoxification. Patient was admitted for etoh detox, chronic alcohol dependence with multiple failures for inpatient and outpatient treatment, frostbite injury to his fingers bilaterally, hx of meth use/abuse. He was placed on CIWAA protocol, ativan, librium, topamax, seroquel. Basic wound care provided for frostbite injury to fingers, blisters remained intact and are healing nicely now. LAC and Psychiatry were consulted with recommendations for inpatient treatment with commitment due to continued use/abuse, harm to self and flight risk. He was committed for above noted reasons. [facility] did screen him initially and with repeat eval yesterday. I spoke to Dr. Varela with [facility] today who is in agreement to accept patient today. Transport will be arranged through Social Work and he will be discharged and transported to [facility] today for treatment. - Discharge Data Discharge Date: 05/27/16 Discharge Disposition: DC/Tfer to In Rehab Fac 62 Condition: Good - Discharge Diagnosis/Problem(s) (1) Alcohol abuse SNOMED Code(s): 04603275 ICD Code: F10.10 - ALCOHOL ABUSE, UNCOMPLICATED Status: Chronic Priority : High Current Visit: Yes (2) Alcohol intoxication SNOMED Code(s): 14986864 ICD Code: F10.129 - ALCOHOL ABUSE WITH INTOXICATION, UNSPECIFIED Status: Acute Priority: High Current Visit: Yes Qualifiers: Complication of substance-induced condition: uncomplicated Qualified Code(s ): F10.120 - Alcohol abuse with intoxication, uncomplicated (3) Drug abuse SNOMED Code(s): 28100343 ICD Code: F19.10 - OTHER PSYCHOACTIVE SUBSTANCE ABUSE, UNCOMPLICATED Status : Chronic Priority: High Current Visit: Yes (4) Methamphetamine abuse SNOMED Code(s): 542696123 ICD Code: F15.10 - OTHER STIMULANT ABUSE, UNCOMPLICATED Status: Acute Priority: Medium Current Visit: No - Patient Summary/Data Operative Procedure(s) Performed: None Complications: None Consults: Consultations 05/20/16 13:37 Consult to Case Management [CONS] Routine Consult to Supervisor Calibration [CONS] Routine Consult to Spiritual Care [CONS] Routine 05/20/16 13:38 Consult for Substance Abuse [CONS] Stat 05/20/16 13:51 Consult to Physician [CONS] Stat 05/20/16 18:07 Consult to Dietary [Consult to Food Operations Manager] [CONS] Routine Labs Pending at D/C: None Recommended Follow-up Testing/Procedures: Outpatient rehab/day treatment after initial inpatient treatment AA/NA follow up after discharge from [facility] Planned Operative Procedure(s) after DC: None Hospital Course: As above - Patient Instructions Diet: Usual Diet as Tolerated Activity: As Tolerated Driving: Do Not Drive Showering/Bathing: May Shower - Discharge Plan Home Medications: Home Meds QUEtiapine Fumarate [Seroquel Xr] 300 mg PO BEDTIME #30 tab.sr.24h 05/09/16 [Rx] Patient Handouts: Substance Use Disorder, Alcohol Intoxication, Cnsy-[id number], Alcohol Withdrawal, [id number] Forms: ED Department Discharge Referrals: PCP,Unknown [Primary Care Provider] - - Discharge Summary/Plan Comment DC Time >30 min.: Yes (40 min) - General Info Date of Service: 05/27/16 Admission Dx/Problem (Free Text: ETOH Intoxication with Withdrawal Flako is seen this morning. Resting comfortably. No further withdrawl symptoms since yesterday afternoon. He again shares with me that he is anxious to go to "inpatient" rehab where "I know I can get the help I need". VSS. Labs stable. No other concerns, no concerns from nursing. Functional Status: Reports: pain controlled, tolerating diet, ambulating, urinating. Denies: new symptoms - Review of Systems General: Reports: No Symptoms HEENT: Reports: no symptoms Pulmonary: Reports: no symptoms Cardiovascular: Reports: No Symptoms Gastrointestinal: Reports: No symptoms Genitourinary: Reports: no symptoms Musculoskeletal: Reports: no symptoms Skin: Reports: no symptoms Neurological: Reports: No Symptoms Psychiatric: Reports: no symptoms - Patient Data Vitals - Most Recent: Last Vital Signs Temp 97.6 F 05/27/16 04:00 Pulse 71 05/27/16 05:06 Resp 16 05/27/16 04:00 BP 112/84 05/27/16 05:06 Pulse Ox 96 05/27/16 05:06 Weight - Most Recent: 169 lb I&O - Last 24 hours: Intake & Output 05/26/16 05/27/16 05/27/16 22:59 06:59 14:59 Intake Total 1500 Balance 1500 Med Orders - Current: Current Medications Acetaminophen (Tylenol) 650 mg PO Q4H PRN PRN Reason: Pain (Mild 1-3)/fever Acetaminophen/Hydrocodone Bitart ([place]ristol 325-5 Mg) 1 tab PO Q4H PRN PRN Reason: Pain (mild 1-3) Last Admin: 05/27/16 05:13 Dose: 1 tab Albuterol/Ipratropium (Duoneb 3.0-0.5 Mg/3 Ml) 3 ml NEB Q4H PRN PRN Reason: Shortness Of Breath/wheezing Bisacodyl (Dulcolax) 5 mg PO DAILY PRN PRN Reason: Constipation Enoxaparin Sodium (Lovenox) 40 mg SUBCUT DAILY [facility] Last Admin: 05/27/16 09:47 Dose: 40 mg Folic Acid (Folic Acid) 1 mg PO BEDTIME [facility] Last Admin: 05/26/16 20:43 Dose: 1 mg Hydralazine HCl (Apresoline) 20 mg IVPUSH Q4H PRN PRN Reason: Hypertension Promethazine HCl 12.5 mg/ (Sodium Chloride) 50.5 mls @ 100 mls/hr IV Q6H PRN PRN Reason: Nausea/Vomiting Ibuprofen (Motrin) 600 mg PO Q6H PRN PRN Reason: Pain Lorazepam (Ativan) 2 mg IVPUSH Q4H PRN PRN Reason: Seizures Last Admin: 05/27/16 07:00 Dose: 2 mg Lorazepam (Ativan) 0 mg IVPUSH Q4H PRN; Protocol PRN Reason: Withdrawal Symptoms Last Admin: 05/26/16 19:35 Dose: 1 mg Magnesium Sulfate (Pharmacy To Dose - Magnesium Replacement) 0 dose .XX ASDIRECTED PRN PRN Reason: RX DOSE Metoprolol Tartrate (Lopressor) 5 mg IVPUSH Q4H PRN PRN Reason: Tachycardia Last Admin: 05/20/16 22:05 Dose: 5 mg Multivitamins (Thera) 1 each PO BEDTIME [facility] Last Admin: 05/26/16 20:44 Dose: 1 each Ondansetron HCl (Zofran) 4 mg IV Q6H PRN PRN Reason: Nausea/Vomiting Pantoprazole Sodium (Protonix) 40 mg PO Q12HR [facility] Last Admin: 05/27/16 09:47 Dose: 40 mg Polyethylene Glycol (Miralax) 17 gm PO DAILY PRN PRN Reason: Constipation Potassium Chloride (Pharmacy To Dose - Potassium Replacement) 0 dose .XX ASDIRECTED PRN PRN Reason: RX DOSE Quetiapine Fumarate (Seroquel) 300 mg PO BEDTIME [facility] Last Admin: 05/26/16 20:53 Dose: 300 mg Quetiapine Fumarate (Seroquel) 50 mg PO DAILY [facility] Last Admin: 05/27/16 09:47 Dose: 50 mg Senna/Docusate Sodium (Senna Plus) 1 tab PO BID PRN PRN Reason: Constipation Sodium Chloride (Saline Flush) 10 ml FLUSH ASDIRECTED PRN PRN Reason: Keep Vein Open Last Admin: 05/27/16 05:15 Dose: 10 ml Temazepam (Restoril) 15 mg PO BEDTIME PRN PRN Reason: Sleep Last Admin: 05/20/16 17:13 Dose: 15 mg Thiamine HCl (Vitamin B-1) 100 mg PO BEDTIME [facility] Last Admin: 05/26/16 20:44 Dose: 100 mg Topiramate (Topamax) 25 mg PO BID [facility] Last Admin: 05/27/16 09:47 Dose: 25 mg Discontinued Medications Acetaminophen/Hydrocodone Bitart ([place] 325-5 Mg) 1 tab PO Q4H PRN PRN Reason: Pain (moderate 4-6) Last Admin: 05/25/16 08:16 Dose: 1 tab Chlordiazepoxide HCl (Librium) 25 mg PO QID [facility] Last Admin: 05/24/16 08:15 Dose: 25 mg Clonidine HCl (Catapres) 0.2 mg PO ONETIME ONE Stop: 05/22/16 05:13 Last Admin: 05/22/16 05:28 Dose: 0.2 mg Clonidine HCl (Catapres) 0.1 mg PO Q8H [facility] Stop: 05/24/16 09:00 Last Admin: 05/24/16 05:12 Dose: Not Given Diphtheria/Tetanus/Acell Pertussis (Boostrix) 0.5 ml IM .ONCE ONE Stop: 05/20/16 16:41 Hydromorphone HCl (Dilaudid) 0.25 mg IVPUSH Q2H PRN PRN Reason: Pain (severe 7-10) Last Admin: 05/24/16 21:46 Dose: 0.25 mg Lactated Ringer's (Ringers, Lactated) 1,000 mls @ 1,000 mls/hr IV .BOLUS ONE Stop: 05/20/16 08:00 Last Admin: 05/20/16 07:04 Dose: 1,000 mls/hr Dextrose/Sodium Chloride (Dextrose 5%-1/2 Ns) 1,000 mls @ 125 mls/hr IV ASDIRECTED [facility] Last Admin: 05/21/16 04:10 Dose: 125 mls/hr Thiamine HCl 200 mg/ Sodium (Chloride) 102 mls @ 50 mls/hr IV ONETIME ONE Stop: 05/20/16 15:40 Last Admin: 05/20/16 17:18 Dose: 50 mls/hr Magnesium Sulfate 2 gm/ Premix 50 mls @ 25 mls/hr IV ONETIME ONE Stop: 05/21/16 15:59 Last Admin: 05/21/16 13:53 Dose: 25 mls/hr Pantoprazole Sodium (Protonix Iv) 40 mg IV Q12HR [facility] Last Admin: 05/21/16 08:59 Dose: 40 mg Pneumococcal Polyvalent Vaccine (Pneumovax 23) 0.5 ml IM .ONCE ONE Stop: 05/20/16 16:41 Potassium Chloride (Klor-Con M20) 20 meq PO Q3H [facility] Stop: 05/21/16 17:01 Last Admin: 05/21/16 18:18 Dose: 20 meq Potassium Chloride (Klor-Con M20) 40 meq PO ONETIME ONE Stop: 05/24/16 09:01 Last Admin: 05/24/16 09:11 Dose: 40 meq Quetiapine Fumarate (Seroquel) 50 mg PO ONETIME ONE Stop: 05/22/16 05:11 Last Admin: 05/22/16 05:32 Dose: Not Given Quetiapine Fumarate (Seroquel) 100 mg PO ONETIME ONE Stop: 05/22/16 05:22 Last Admin: 05/22/16 05:30 Dose: 100 mg Topiramate (Topamax) 25 mg PO ONETIME ONE Stop: 05/20/16 14:31 Last Admin: 05/20/16 16:30 Dose: 25 mg - Exam General: Reports: alert, oriented, cooperative, no acute distress HEENT: Reports: Pupils equal, Pupils reactive, EOMI, Mucous membr. moist/pink Neck: Reports: supple Lungs: Reports: Clear to auscultation, Normal respiratory effort Cardiovascular: Reports: Regular Rate, Regular Rhythm Abdomen: Reports: bowel sounds present, soft Extremities: Reports: no edema Neurological: Reports: no new focal deficit Psy/Mental Status: Reports: alert, normal affect, normal mood *Q Meaningful Use (DIS) - VTE *Q VTE Criteria *Q: - Stroke *Q Stroke Criteria *Q: - AMI *Q AMI Criteria *Q:
[2016-05-27 11:55] VITALS: BP 118/72
[2016-05-27] MEDS ORDERED: LORazepam 1 MG Tab PO STA (13:13)
== END 2016-05-27 13:32 | DRG 897 ==
LOC: JD.ED 06:44 → JD.ICU 13:30 → JD.MS 05-21 15:39 → JD.OB 05-24 20:18
PROVIDERS: ADMIT Internal Medicine; ATTEND Internal Medicine
PROC: HZ2ZZZZ Detoxification Services for Substance Abuse Treatment (ICD-10-PCS; principal; 2016-05-20)
DX: F10.229 Alcohol dependence with intoxication, unspecified (principal); F16.20 Hallucinogen dependence, uncomplicated; F15.20 Other stimulant dependence, uncomplicated; T33.532A Superficial frostbite of left finger(s), initial encounter; T33.531A Superficial frostbite of right finger(s), initial encounter; Y90.2 Blood alcohol level of 40-59 mg/100 ml; E87.6 Hypokalemia; E83.42 Hypomagnesemia; F29 Unspecified psychosis not due to a substance or known physiological condition; F10.232 Alcohol dependence with withdrawal with perceptual disturbance; R74.0 Nonspecific elevation of levels of transaminase and lactic acid dehydrogenase [LDH]; X31.XXXA Exposure to excessive natural cold, initial encounter
CPT/HCPCS: 36415; 80048; 80053; 80306; 81001; 83735; 84443; 85025; 96360; 99222; 99232; 99239; 99282; 99285-25; A9270-GY; C9113; G0480; J1170; J1650; J2060; J3411; J3475; J3490; J7030; J7042; J7050; J7120

== ENCOUNTER 2016-07-30 17:37 | Emergency (ER) | payer MEDICAID ==
--- NOTE | 2016-07-30 19:03 | EDM.PDOC ---
ED HPI GENERAL MEDICAL PROBLEM - General Chief Complaint: Behavioral/Psych Stated Complaint: MEDICAL CLEARANCE Time Seen by Provider: 07/30/16 18:01 Source of Information: Reports: Patient, Other (Cass Eason) History Limitations: Reports: No Limitations - History of Present Illness INITIAL COMMENTS - FREE TEXT/NARRATIVE: Patient is a 41-year-old male who is brought in by [facility] with concerns patient is experiencing acute psychosis with several delusions. [facility] has placed application of alternative treatment order due these recent issues. Cass Eason with [facility] stated patient had been in the inpatient treatment program and staying at the [facility] for alcoholism. Patient recently graduated and is now participating in outpatient treatment. She states patient arrived at [facility] today with concerns all his medications were gone and that he thought somebody had taken them. Patient had 6o tabs of seroquel 150mg, hydroxyzine 50mg, and topiramate filled 07/27/16. They were concerned patient may have taken all of them and thus was requested to be detained and brought into the E.D. for evaluation. The phone call to [facility] was made at 1600. In addition patient believes police and federal officers are following him and trying to plant something on him to get him in trouble. When asked if he was thinking of hurting anyone he replied yes. 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 He has disorganized thoughts and is switching from one delusion to another. He reported that he is fearful of others on the street. Patient denies suicidal/homicidal ideations, recent alcohol use, or any recreational drug use. - Related Data Allergies Allergy/AdvReac Type Severity Reaction Status Date / Time No Known Allergies Allergy Verified 05/08/16 19:18 Home Meds: Home Meds QUEtiapine Fumarate [Seroquel Xr] 300 mg PO BEDTIME #30 tab.sr.24h 05/09/16 [Rx] QUEtiapine Fumarate [Quetiapine Fumarate ER] 150 mg PO BID 07/30/16 [History] Topiramate 25 mg PO BID 07/30/16 [History] hydrOXYzine Pamoate [Hydroxyzine Pamoate] 50 mg PO BID 07/30/16 [History] Past Medical History Gastrointestinal History: Reports: Other (See Below) Other Gastrointestinal History: states has had "bad nausea" last 3 or 4 days, has been taking Peptobismal and Zantac. Psychiatric History: Reports: Other (See Below) Other Psychiatric History: drug/alcohol abuse - Past Surgical History Musculoskeletal Surgical History: Reports: ORIF Social & Family History - Tobacco Use Smoking Status *Q: Never Smoker Packs/Tins Daily: 1 Used Tobacco, but Quit: Yes Month Tobacco Last Used: 05/25 Second Hand Smoke Exposure: No - Caffeine Use Caffeine Use: Reports: Coffee - Alcohol Use Days Per Week of Alcohol Use: 2 Number of Drinks Per Day: 4 Total Drinks Per Week: 8 - Recreational Drug Use Recreational Drug Use: Yes Drug Use in Last 12 Months: Yes Recreational Drug Type: Reports: Methamphetamine Recreational Drug Use Frequency: Binges ED ROS GENERAL - Review of Systems Review Of Systems: See Below Constitutional: Denies: Fever, Chills, Decreased Appetite Respiratory: Reports: No Symptoms Cardiovascular: Reports: No Symptoms GI/Abdominal: Reports: No Symptoms Neurological: Denies: Confusion, Headache Psychiatric: Reports: Agitation, Mood Lability. Denies: Anxiety, Hallucinations , Homicidal Ideation, Suicidal Ideation ED EXAM, BEHAVIORAL HEALTH - Physical Exam Exam: See Below Exam Limited By: No Limitations General Appearance: Alert, WD/WN, No Apparent Distress Eye Exam: Bilateral Eye: PERRL Ears: Hearing Grossly Normal Nose: Normal Inspection Throat/Mouth: Normal Voice, No Airway Compromise Head: Atraumatic, Normocephalic Neck: Normal Inspection, Supple Respiratory/Chest: No Respiratory Distress, Lungs Clear, Normal Breath Sounds Cardiovascular: Normal Peripheral Pulses, Regular Rate, Rhythm Extremities: Normal Inspection Neurological: Alert, Normal Mood/Affect, CN II-XII Intact, Normal Cognition, Normal Gait, No Motor/Sensory Deficits, Oriented x 3 Psychiatric: Alert, Normal Affect, Normal Cognition, Normal Mood, Oriented, Pressured Speech, Paranoid Thoughts. No: Agitated, Flight of Ideas, Homicidal Thoughts, Suicidal Plan, Suicidal Thoughts, Tangential Thoughts, Auditory Hallucinations, Visual Hallucinations, Grandiose Thoughts, Threatening Behavior Skin Exam: Warm, Dry, Intact, Normal color, No rash COURSE, BEHAVIORAL HEALTH COMP - Course Vital Signs: Last Vital Signs Temp 97.6 F 07/30/16 17:50 Pulse 78 07/31/16 13:45 Resp 16 07/31/16 13:45 BP 124/78 05/20/17 13:45 Pulse Ox 100 07/31/16 13:45 Orders, Labs, Meds: Active Orders 24 hr Category Date Time Status EKG Documentation Completion [RC] STAT Care 07/30/16 18:51 Active EKG Documentation Completion [RC] STAT Care 07/30/16 21:15 Active EKG Documentation Completion [RC] STAT Care 07/31/16 11:12 Active Laboratory Tests 07/30/16 07/30/16 07/30/16 Range/Units 17:03 17:03 20:34 WBC 7.13 (4.23-9.07) K/mm3 RBC 4.41 L (4.63-6.08) M/mm3 Hgb 12.8 L (13.7-17.5) gm/L Hct 37.1 L (40.1-51.0) % MCV 84.1 (79.0-92.2) fl MCH 29.0 (25.7-32.2) pg MCHC 34.5 (32.2-35.5) g/dl RDW Std Deviation 38.7 (35.1-43.9) fL Plt Count 272 (163-337) K/mm3 MPV 8.7 L (9.4-12.3) fl Neut % (Auto) 58.4 (34.0-67.9) % Lymph % (Auto) 28.1 (21.8-53.1) % [place] % (Auto) 7.0 (5.3-12.2) % Eos % (Auto) 4.9 (0.8-7.0) Baso % (Auto) 1.5 H (0.1-1.2) % Neut # (Auto) 4.16 (1.78-5.38) K/mm3 Lymph # (Auto) 2.00 (1.32-3.57) K/mm3 [place] # (Auto) 0.50 (0.30-0.82) K/mm3 Eos # (Auto) 0.35 (0.04-0.54) K/mm3 Baso # (Auto) 0.11 H (0.01-0.08) K/mm3 Sodium 144 (136-145) mEq/L Potassium 3.3 L (3.5-5.1) mEq/L Chloride 108 H (98-107) mEq/L Carbon Dioxide 25 (21-32) mEq/L Anion Gap 14.3 (5-15) BUN 10 (7-18) mg/dL Creatinine 1.2 (0.7-1.3) mg/dL Est Cr Clr Drug Dosing 79.96 mL/min Estimated GFR (MDRD) > 60 (>60) mL/min BUN/Creatinine Ratio 8.3 L (14-18) Glucose 113 H (74-106) mg/dL Calcium 8.7 (8.5-10.1) mg/dL Total Bilirubin 0.4 (0.2-1.0) mg/dL AST 17 (15-37) U/L ALT 32 (16-63) U/L Alkaline Phosphatase 60 (46-116) U/L Total Protein 7.2 (6.4-8.2) g/dl Albumin 3.7 (3.4-5.0) g/dl Globulin 3.5 gm/dL Albumin/Globulin Ratio 1.1 (1-2) Urine Opiates Screen Negative (NEGATIVE) Ur Buprenorphine Scrn Negative (NEGATIVE) Ur Oxycodone Screen Negative (NEGATIVE) Urine Methadone Screen Negative (NEGATIVE) Ur Propoxyphene Screen Negative (NEGATIVE) Ur Barbiturates Screen Negative (NEGATIVE) Ur Tricyclics Screen Presumptive positive H (NEGATIVE) Ur Phencyclidine Scrn Negative (NEGATIVE) Ur Amphetamine Screen Negative (NEGATIVE) U Methamphetamines Scrn Negative (NEGATIVE) U Benzodiazepines Scrn Negative (NEGATIVE) U Cocaine Metab Screen Negative (NEGATIVE) U Marijuana (THC) Screen Negative (NEGATIVE) Ethyl Alcohol 0.00 (0.00) gm% Medications Discontinued Medications Generic Name Dose Route Start Last Admin Trade Name Justin PRN Reason Stop Dose Admin Hydroxyzine HCl 50 mg 07/30/16 20:54 07/30/16 21:03 Atarax PO 07/30/16 20:55 50 mg NOW ONE Administration Hydroxyzine HCl 50 mg 07/31/16 08:36 07/31/16 08:46 Atarax PO 07/31/16 08:37 50 mg NOW ONE Administration Quetiapine Fumarate 300 mg 07/30/16 20:53 07/30/16 21:03 Seroquel PO 07/30/16 20:54 300 mg NOW ONE Administration Topiramate 25 mg 07/30/16 20:54 07/30/16 21:03 Topamax PO 07/30/16 20:55 25 mg NOW ONE Administration Topiramate 25 mg 07/31/16 08:36 07/31/16 08:46 Topamax PO 07/31/16 08:37 25 mg NOW ONE Administration Re-Assessment/Re-Exam: Labs/studies ordered include: CBC, C14, ETOH, Urine Drug tox, and EKG. White blood cells count 7.13, hemoglobin 12.8, sodium 144, potassium 3.3, serum EtOH 0.0. Awaiting urine drug tox. TSH obtained 05/30/16 was 0.816. EKG sinus rhythm at a rate he, VA interval 149, QTC 464, mild IVCD. No acute ST wave changes. No ischemia or old CA noted. Seroquel and hydroxyzine list Q-T prolongation in the adverse side effects. Seroquel has a half-life of 6-7 hours. Hydroxyzine has a half-life of 20-25 hours. Topiramate has a half-life of 21 hours. At this point patient is alert and oriented showing no signs of sedation. I have a strong belief he did not take take excessive amount of these medications today. [address] Strong with psychiatric medicine. Request additional EKG to evaluate for QTC prolongation and IVCD. If no change or limit to the psychiatric floor. if there has been some changes suggest patient be admitted to telemetry for further monitoring. 2138 second EKG obtained sinus rhythm at a rate of 75 with a right bundle branch block. QT has increased from 4-412. QTC has decreased from 464-461. No acute ST-T wave changes. Discusses with Dr. Strong and Dr. Armijo E.D. Physician. They have refused admitting patient to the psychiatric floor due to prolonged QT > 385 for a male. Thus they request patient be admitted here for further monitoring. Dr. Laws has been called with message left. 2215 Dr. Laws has presented to the E.D. and discussed admitting patient to the telemetry floor. He states patient would require ICU admission but do to staffing is unable to admit him. Suggests patient remain in the E.D. until the a.m. to which arrangement for psychiatric placement can be arranged. propagation worker agricultural economist has been contacted with message left. 223 Dr. Arthur has graciously agreed to monitor patient overnight until placement can be determined. 1112: Patient has been resting comfortably with no issues. Will obtain EKG and arrange transport. EKG ordered: sinus rhythm at a rate of 69, normal P axis, idioventricular conduction delay, consider atypical right bundle bunch block, VA interval is 143 , QT is 472, QTC is 506, no acute ST changes noted. [address] Strong with [facility]. Shared results of new EKG. Patient has been doing well throughout the evening. 1235 I have been notified [facility] will be arriving at 1330. 1348 [facility] has arrived and transported patient. Departure - Departure Time of Disposition: 13:48 Disposition: DC/Tfer to Psych Hosp/Unit 65 Condition: good Clinical Impression: Acute psychosis - Discharge Information Referrals: PCP,None [Primary Care Provider] - Forms: ED Department Discharge Additional Instructions: Go to the [facility] E.D to be admitted to [facility] for further psych evaluation. - My Orders Last 24 Hours: My Active Orders 07/30/16 18:51 EKG Documentation Completion [RC] STAT 07/30/16 21:15 EKG Documentation Completion [RC] STAT 07/31/16 11:12 EKG Documentation Completion [RC] STAT - Assessment/Plan Last 24 Hours: My Active Orders 07/30/16 18:51 EKG Documentation Completion [RC] STAT 07/30/16 21:15 EKG Documentation Completion [RC] STAT 07/31/16 11:12 EKG Documentation Completion [RC] STAT
[2016-07-30] MEDS ORDERED: QUEtiapine 100 MG Tab PO ONE (20:53)
[2016-07-30] MEDS ORDERED: hydrOXYzine HCl 50 MG Tab PO ONE (20:54)
[2016-07-30] MEDS ORDERED: Topiramate 25 MG Tab PO ONE (20:54)
[2016-07-31] MEDS ORDERED: Topiramate 25 MG Tab PO ONE (08:36)
[2016-07-31] MEDS ORDERED: hydrOXYzine HCl 50 MG Tab PO ONE (08:36)
[2016-07-31 13:47] VITALS: BP 124/78
== END 2016-07-31 13:45 ==
LOC: JD.ED 17:37
DX: F23 Brief psychotic disorder (principal); Z79.899 Other long term (current) drug therapy
CPT/HCPCS: 36415; 80053; 80306; 85025; 93005; 99285; A9270; G0480; 99283

== ENCOUNTER 2016-11-23 21:37 | Emergency (ER) | payer MEDICAID ==
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
[2016-11-23] MEDS ORDERED: fentaNYL 100 MCG/2 ML SDV IVPUSH ONE ×2 (22:52)
[2016-11-23] MEDS ORDERED: Lactated Ringers 1,000 ML IV ONE (22:54)
[2016-11-24] MEDS ORDERED: fentaNYL 100 MCG/2 ML SDV IVPUSH ONE (00:27)
[2016-11-24 00:51] VITALS: BP 117/53
[2016-11-24] MEDS ORDERED: Diphtheria,Pertussis(Acell),Tetanus Vaccine 0.5 ML SDV IM ONE (00:51)
--- NOTE | 2016-11-24 08:02 | CT ---
CT cervical spine Technique: Multiple axial sections were obtained from above C1 inferiorly to the bottom of T1. Reconstructed sagittal and coronal images were reviewed. Findings: Mastoid sinuses that are seen in middle ear cavities are clear. Posterior skull base is intact. Vertebral bodies and posterior arches are intact. No fracture is seen. No bony central or bony neural foraminal stenosis is seen. No abnormal subluxation is identified. Minimal scattered degenerative change is noted. Impression: 1. Nothing acute is appreciated on CT study of the cervical spine. Diagnostic code #2 I agree with preliminary report issued by [facility] ([facility] preliminary report dictated on 11/24/16, 1:12 AM Central Time)
--- NOTE | 2016-11-24 08:02 | CT ---
CT chest Technique: Multiple axial sections were obtained through the chest. Intravenous contrast was utilized. Comparison: No prior chest imaging. Findings: Mediastinum and hilar regions are within normal limits. No pericardial thickening is seen. Slight increased density is noted within the right middle lobe compatible with minimal atelectasis/pulmonary contusions. Lungs otherwise are clear. Minimal cortical disruption is seen within the right third rib possibly due to fracture. Slight deformity of the fourth rib is seen which is felt compatible with fracture. Mildly displaced fracture is noted within the fifth and sixth ribs on the right side. Nondisplaced fracture noted within the right scapular wing. No additional rib abnormality is seen. Lucency partially visualized within the clavicle on the right side which could be due to respiratory motion artifact although I believe there is a right clavicle fracture. Impression: 1. Two and possibly four right-sided rib fractures. Adjacent pulmonary contusion/atelectasis is seen. 2. Probable right clavicle fracture. Nondisplaced fracture within the right scapular wing. 3. No additional abnormality identified on CT study of the chest. Diagnostic code #3 Agree with preliminary report issued by [facility] ([email or web address] preliminary report dictated on 11/24/16, 12:44 AM Central Time) CT abdomen and pelvis Technique: Multiple axial sections were obtained from above the dome of the diaphragm inferiorly through the pubic symphysis. Intravenous contrast was utilized. Delayed images were also obtained through the abdomen and pelvis. There is some respiratory motion artifact being seen. Findings: Liver shows no focal abnormality. Spleen appears within normal limits. Adrenal glands show no nodule. Pancreas appears unremarkable. Gallbladder shows no calcified gallstones. Kidneys show symmetric contrast enhancement without definite renal abnormality. Delayed images show contrast excretion into both ureters with no contrast extravasation. Contrast noted within the bladder on delayed images. Aorta shows no aneurysmal dilatation. No retroperitoneal adenopathy or mesenteric abnormalities are seen. No pelvic mass or adenopathy is seen. Bone window settings were reviewed which show degenerative change within the lower lumbar spine. Unilateral spondylolytic defect is noted at L5-S1 on the left side. Nothing acute is appreciated on bone window settings. Impression: 1. Incidental findings. Nothing acute is identified on CT study of the abdomen and pelvis. Diagnostic code #2 I agree with preliminary report issued by [facility] ([email or web address] preliminary report dictated on 11/24/16, 12:44 AM Central Time Central Time)
--- NOTE | 2016-11-24 08:12 | CT ---
Head CT Technique: Multiple axial sections through the brain were obtained. Intravenous contrast was not utilized. Comparison: No previous intracranial imaging is available. Findings: Small subdural hematoma is noted within the left frontal region measuring about 3 mm in thickness. Small areas of increased density are noted within the left temporal lobe compatible with small areas of parenchymal cortical hemorrhage. No other findings of intracranial hemorrhage. No midline shift or mass effect is identified. Facial bone findings are seen which will be described on facial bone CT. Minimal amount of air is seen intracranially from fracture involving the right orbit. Impression: 1. Small subdural hematoma within the left frontal region with small areas of parenchymal hemorrhage within the cortex of the left temporal lobe. 2. Fracture within the right orbit which will be described on facial CT with small amount of intracranial air being seen in this area. Diagnostic code #5 Agree with preliminary report issued by [employer] ([facility] preliminary report dictated on 11/24/16, 1:05 AM Central Time)
--- NOTE | 2016-11-24 08:18 | CT ---
CT facial bones Technique: Multiple axial sections through the facial bones were obtained. Reconstructed coronal and sagittal images were reviewed. Findings: Slightly comminuted and displaced fracture within the right lateral orbital wall is seen. There is a fracture being seen within the posterior orbital floor near the orbital apex with intracranial extension and slight comminution with displacement. Small amount of intracranial air is seen in this area. Fracture is noted within the inferior left orbital floor which may be old. Nondisplaced right zygomatic arch fracture is seen. Fluid is noted within the right maxillary and sphenoid sinus likely representing blood. Soft tissue density noted within the right maxillary and ethmoid sinuses likely representing blood clot. Nondisplaced fracture within the inferior right orbital rim is seen. Small amount of air seen within the right orbit. Soft tissue swelling noted within the periorbital region. Impression: 1. Slightly displaced fracture within the lateral right orbital wall as well as additional fracture within the posterior right orbital apex with intracranial extension and small amount of intracranial air. Nondisplaced right zygomatic arch fracture is seen. Nondisplaced fracture within the right inferior orbital rim. 2. Old fracture within the inferior left orbital floor. 3. Sinus disease as described above. Diagnostic code #3 Agree with preliminary report issued by [email or web address] ([facility] preliminary report dictated on 11/24/16, 12:54 AM Central Time)
== END 2016-11-24 01:08 ==
LOC: JD.ED 21:37
DX: S06.5X0A Traumatic subdural hemorrhage without loss of consciousness, initial encounter (principal); S02.19XA Other fracture of base of skull, initial encounter for closed fracture; S06.2X0A Diffuse traumatic brain injury without loss of consciousness, initial encounter; S02.40EA Zygomatic fracture, right side, initial encounter for closed fracture; S42.191A Fracture of other part of scapula, right shoulder, initial encounter for closed fracture; S60.512A Abrasion of left hand, initial encounter; S50.812A Abrasion of left forearm, initial encounter; S50.811A Abrasion of right forearm, initial encounter; F10.129 Alcohol abuse with intoxication, unspecified; Z98.890 Other specified postprocedural states; Z23 Encounter for immunization; Z87.891 Personal history of nicotine dependence; V17.4XXA Pedal cycle driver injured in collision with fixed or stationary object in traffic accident, initial encounter; Y92.410 Unspecified street and highway as the place of occurrence of the external cause; Y90.1 Blood alcohol level of 20-39 mg/100 ml
CPT/HCPCS: 36415; 70450; 70486; 71260; 72125; 74177; 80053; 80306; 81001; 85025; 90471; 90715; 96361; 96374; 96376; 99285; G0480; J3010; J7120